=== PATIENT | male | born 1940 | race Caucasian/White ===

== ENCOUNTER 2019-08-10 14:32 | Outpatient (CLI) | payer MEDICARE, OTHER, SELFPAY ==
--- NOTE | 2019-08-10 14:45 | XR_ITS ---
WS: [id number] PROCEDURE: XR chest 2V* [id number] CLINICAL INFORMATION: COPD COMPARISON: CT November 25, 2018 and radiograph August 16, 2018 FINDINGS: Heart: Normal cardiac silhouette. Sternotomy. CABG. Lungs: Moderate chronic emphysematous changes. No acute pulmonary infiltrates. No focal pneumonia. Bones: Osteopenia. XR/XR chest 2V* [id number] IMPRESSION: Stable chronic emphysematous changes. No acute pulmonary infiltrates.
== END 2019-08-10 14:33 | disposition home or self-care (01) ==
LOC: RADWPI 14:39
PROVIDERS: Family Provider Family Medicine; PCP Family Medicine; Visit Provider Family Medicine
DX: J43.9 Emphysema, unspecified (principal)
CPT/HCPCS: 71046

== ENCOUNTER → 2020-06-06 13:08 | Outpatient (BNVA) | payer MEDICARE, OTHER, SELFPAY | PROVIDERS: Family Provider Family Medicine; PCP Family Medicine; Visit Provider Orthopaedic Surgery | DX: Z47.1 Aftercare following joint replacement surgery (principal); Z96.653 Presence of artificial knee joint, bilateral; M25.562 Pain in left knee; M25.561 Pain in right knee | CPT/HCPCS: 73560; 73565 ==

== ENCOUNTER 2021-03-06 06:40 | Outpatient (CLI) | payer MEDICARE, OTHER, SELFPAY ==
--- NOTE | 2021-03-06 07:15 | USCV_ITS ---
Hunter Garvin Age: 81 Gender: M : 1940 Exam Date: 03/06/2021 07:23 Ordering Phys: Heena Malin MD ([email or web address]) Technologist: JULITA DHALIWAL Exam Location: [facility] Indication: QUESTION OF OCCLUSIONOF CCA Risk Factors: Unknown Previous Vascular Surgery: Unknown Right Brachial BP: / Left Brachial BP: / Right Left Velocity (cm/s) Spectral Plaque Velocity (cm/s) Spectral Plaque Syst/Diast Broadening Syst/Diast Broadening 55.10/ 15.40 Prox CCA 67.70 / 17.10 33.50/ 9.20 Mid CCA 40.80 / 7.20 29.90/ 8.50 Hetro Distal CCA 41.40 / 5.90 Hetro 56.50/ 15.30 Hetro Prox ICA 54.00 / 15.60 Hetro 52.70/ 20.60 Mid ICA 74.20 / 18.30 44.00/ 14.00 Distal ICA 74.20 / 21.10 71.10 Hetro ECA 147.70 Hetro 1.69 ICA/CCA 1.82 Antegrade Vertebral Antegrade 25.00/ 9.20 cm/s 35.00/ 9.30 cm/s Tri Subclavian Tri 65.70 78.80 FINDINGS Moderate dense irregular plaques of the bifurcation proximal internal carotid arteries bilaterally. Intimal thickening and minimal plaques in the common carotid arteries bilaterally. Antegrade flow in the vertebral arteries bilaterally. Normal Doppler flow velocities in the subclavian arteries bilaterally. CONCLUSIONS Moderate dense irregular plaques of the bifurcation proximal internal carotid arteries bilaterally, suggesting less than 50% stenosis. Intimal thickening and minimal plaques in the common carotid arteries bilaterally. No significant stenosis in the subclavian or external carotid arteries bilaterally The common carotid arteries appear to be patent bilaterally. Dr Chase Suarez MD [facility] (Electronically Signed) Final Date: 07 March 2021 14:36 S
== END 2021-03-06 06:41 | disposition home or self-care (01) ==
LOC: US 06:44
PROVIDERS: PCP Family Medicine; Visit Provider Internal Medicine Cardiovascular Disease
DX: R09.89 Other specified symptoms and signs involving the circulatory and respiratory systems (principal); I65.23 Occlusion and stenosis of bilateral carotid arteries
CPT/HCPCS: 93880

== ENCOUNTER 2021-04-08 14:51 | Outpatient (CLI) | payer MEDICARE, OTHER, SELFPAY ==
--- NOTE | 2021-04-08 15:03 | XR_ITS ---
WS: [id number] Exam: XR shoulder RT min 2V* [id number] Date/Time of Exam: 04/08/2021 3:36 PM Reason For Exam: R SHOULDER PAIN No fracture or dislocation noted. Normal soft tissues. Calcified pleural plaque along the right diaph ragm noted. This might be seen with asbestos related lung disease. XR/XR shoulder RT min 2V* [id number] IMPRESSION: 1. Unremarkable right shoulder.
== END 2021-04-08 14:52 | disposition home or self-care (01) ==
LOC: RAD 14:57
PROVIDERS: PCP Family Medicine; Visit Provider Family Medicine
DX: M25.511 Pain in right shoulder (principal)
CPT/HCPCS: 73030

== ENCOUNTER 2021-04-18 14:50 | Outpatient (CLI) | payer MEDICARE, OTHER, SELFPAY ==
--- NOTE | 2021-04-18 15:20 | XR_ITS ---
WS: [id number] Chest 2 views, 04/18/2021 Clinical Data: PLEURAL PLAQUE Comparison: PA and lateral chest, 08/10/2019. Findings: No nodules, masses or effusions are seen. The heart is normal. The pulmonary vascularity is not increased. No pneumonia or pneumothorax is seen. The diaphragms are flattened. The aortic arch a nd descending thoracic aorta show tortuosity. There are midline sternotomy sutures with mediastinal c lips. There are small pleural plaques on the diaphragmatic surfaces of the pleura. XR/XR chest 2V* [id number] Impression: 1. Atherosclerosis and hyperinflation. 2. Pleural plaques on the diaphragmatic surfaces of the pleura.
== END 2021-04-18 14:51 | disposition home or self-care (01) ==
LOC: RAD 15:10
PROVIDERS: PCP Family Medicine; Visit Provider Family Medicine
DX: J92.9 Pleural plaque without asbestos (principal); I70.90 Unspecified atherosclerosis
CPT/HCPCS: 71046

== ENCOUNTER → 2021-05-12 12:07 | Outpatient (BNVA) | payer MEDICARE, OTHER, SELFPAY | PROVIDERS: PCP Family Medicine; Visit Provider Family Medicine | DX: R05.9 Cough, unspecified (principal); J06.9 Acute upper respiratory infection, unspecified | CPT/HCPCS: 87400 ==

== ENCOUNTER → 2021-09-25 12:50 | Outpatient (BNVA) | payer MEDICARE, OTHER, SELFPAY | PROVIDERS: PCP Family Medicine; Referring Provider Family Medicine; Visit Provider Specialist | DX: G89.29 Other chronic pain (principal); Z96.653 Presence of artificial knee joint, bilateral; Z87.891 Personal history of nicotine dependence; M25.561 Pain in right knee; M25.562 Pain in left knee | CPT/HCPCS: 73560; 73565; 99213; 99215 ==

== ENCOUNTER → 2021-11-07 12:00 | Outpatient (BNVA) | payer MEDICARE, OTHER, SELFPAY | PROVIDERS: PCP Family Medicine; Visit Provider Family Medicine | DX: Z20.822 Contact with and (suspected) exposure to COVID-19 (principal) | CPT/HCPCS: 87426 ==

== ENCOUNTER → 2022-01-01 09:48 | Outpatient (BNVA) | payer MEDICARE, OTHER, SELFPAY | PROVIDERS: PCP Family Medicine; Visit Provider Family Medicine | DX: E11.9 Type 2 diabetes mellitus without complications (principal); I10 Essential (primary) hypertension; E53.8 Deficiency of other specified B group vitamins; J06.9 Acute upper respiratory infection, unspecified; G47.33 Obstructive sleep apnea (adult) (pediatric); Z99.89 Dependence on other enabling machines and devices; I25.10 Atherosclerotic heart disease of native coronary artery without angina pectoris; I48.91 Unspecified atrial fibrillation; Z79.01 Long term (current) use of anticoagulants; N18.9 Chronic kidney disease, unspecified; L98.9 Disorder of the skin and subcutaneous tissue, unspecified | CPT/HCPCS: 80053; 82607; 83036; 85025 ==

== ENCOUNTER → 2022-01-08 13:37 | Outpatient (BNVA) | payer MEDICARE, OTHER, SELFPAY | PROVIDERS: PCP Family Medicine; Visit Provider Internal Medicine Cardiovascular Disease | DX: I12.9 Hypertensive chronic kidney disease with stage 1 through stage 4 chronic kidney disease, or unspecified chronic kidney disease (principal); E11.22 Type 2 diabetes mellitus with diabetic chronic kidney disease; N18.9 Chronic kidney disease, unspecified; Z87.891 Personal history of nicotine dependence; Z79.84 Long term (current) use of oral hypoglycemic drugs; I25.10 Atherosclerotic heart disease of native coronary artery without angina pectoris; I48.0 Paroxysmal atrial fibrillation; Z95.1 Presence of aortocoronary bypass graft; Z79.01 Long term (current) use of anticoagulants | CPT/HCPCS: 99214 ==

== ENCOUNTER 2022-04-08 16:01 | Outpatient (CLI) | payer MEDICARE, OTHER, SELFPAY ==
--- NOTE | 2022-04-08 16:53 | XR_ITS ---
WS: [id number] Exam: XR chest 2V* [id number] Date/Time of Exam: 04/08/2022 4:53 PM Reason For Exam: Dyspnea, crackles in lungs Comparison 04/18/2021. The lungs are hyperinflated and clear. Heart size is normal. The mediastinum is normal in contour. Si gns of previous CABG surgery. There are bilateral calcified diaphragmatic pleural plaques. The possib ility of asbestos-related lung disease might be considered. Bony structures are unremarkable. XR/XR chest 2V* [id number] IMPRESSION: 1. Pulmonary hyperinflation which may indicate COPD. No acute process noted. 2. Calcified pleural plaques along both of both diaphragms. Asbestos related magdy ng disease might be a consideration.
== END 2022-04-08 16:02 | disposition home or self-care (01) ==
LOC: RAD 16:06
PROVIDERS: PCP Family Medicine; Visit Provider Family Medicine
DX: Z51.81 Encounter for therapeutic drug level monitoring (principal); R06.00 Dyspnea, unspecified; R05.9 Cough, unspecified; E11.9 Type 2 diabetes mellitus without complications
CPT/HCPCS: 71046; 80053; 83036; 83880; 85025; 86141

== ENCOUNTER 2022-04-15 20:00 | Outpatient (CLI) | payer MEDICARE, OTHER, SELFPAY | END 2022-04-15 20:01 | disposition home or self-care (01) | LOC: SLEEP 04-16 07:27 | PROVIDERS: PCP Family Medicine; Visit Provider Family Medicine | DX: Z99.89 Dependence on other enabling machines and devices (principal); G47.33 Obstructive sleep apnea (adult) (pediatric); G47.10 Hypersomnia, unspecified | CPT/HCPCS: 95811 ==

== ENCOUNTER → 2022-07-07 14:10 | Outpatient (BNVA) | payer MEDICARE, OTHER, SELFPAY | PROVIDERS: PCP Family Medicine; Visit Provider Family Medicine | DX: Z51.81 Encounter for therapeutic drug level monitoring (principal); D64.9 Anemia, unspecified; N18.9 Chronic kidney disease, unspecified; Z13.220 Encounter for screening for lipoid disorders; E55.9 Vitamin D deficiency, unspecified; I10 Essential (primary) hypertension; E11.9 Type 2 diabetes mellitus without complications | CPT/HCPCS: 80053; 80061; 82306; 83550; 85025 ==

== ENCOUNTER 2022-08-18 14:58 | Outpatient (CLI) | payer MEDICARE, OTHER, SELFPAY ==
--- NOTE | 2022-08-18 15:30 | XRR_ITS ---
PROCEDURE INFORMATION: Exam: XR Chest Exam date and time: 08/18/2022 3:31 PM Age: 82 years old Clinical indication: Shortness of breath TECHNIQUE: Imaging protocol: Radiologic exam of the chest. Views: 2 views. COMPARISON: CR XR chest 2V* [id number] 04/08/2022 4:55 PM FINDINGS: Lungs: Left lower lobe atelectasis versus infiltrate new compared to prior exam. Emphysematous changes suspected given some flattening of the diaphragms. Pleural spaces: Calcified pleural plaques overlying the diaphragms again suspected appear chronic. Heart/Mediastinum: Unremarkable. No cardiomegaly. Bones/joints: Sternotomy wires. XR/XR chest 2V* [id number] IMPRESSION: 1. Left lower lobe atelectasis versus infiltrate new compared to prior exam. 2. Sternotomy wires. 3. Emphysematous changes suspected given some flattening of the diaphragms. 4. Calcified pleural plaques overlying the diaphragms again suspected appear chronic.
== END 2022-08-18 14:59 | disposition home or self-care (01) ==
LOC: RAD 15:04
PROVIDERS: PCP Family Medicine; Visit Provider Clinical Nurse Specialist Adult Health
DX: R06.02 Shortness of breath (principal); R35.0 Frequency of micturition; Z20.822 Contact with and (suspected) exposure to COVID-19
CPT/HCPCS: 71046; 81000; 87426

== ENCOUNTER → 2022-10-07 13:45 | Outpatient (BNVA) | payer MEDICARE, OTHER, SELFPAY | PROVIDERS: PCP Family Medicine; Visit Provider Family Medicine | DX: Z51.81 Encounter for therapeutic drug level monitoring (principal); E11.9 Type 2 diabetes mellitus without complications; J18.9 Pneumonia, unspecified organism; R68.83 Chills (without fever); R53.83 Other fatigue; R06.02 Shortness of breath; I10 Essential (primary) hypertension; D64.9 Anemia, unspecified; L98.9 Disorder of the skin and subcutaneous tissue, unspecified | CPT/HCPCS: 80053; 83036; 83540; 85025 ==

== ENCOUNTER → 2022-11-19 14:27 | Outpatient (BNVA) | payer MEDICARE, OTHER, SELFPAY | PROVIDERS: PCP Family Medicine; Visit Provider Nurse Practitioner Family | DX: L81.4 Other melanin hyperpigmentation (principal); D22.5 Melanocytic nevi of trunk; Z71.89 Other specified counseling; L85.3 Xerosis cutis; L57.8 Other skin changes due to chronic exposure to nonionizing radiation; L57.0 Actinic keratosis; C44.329 Squamous cell carcinoma of skin of other parts of face; S50.812A Abrasion of left forearm, initial encounter; X58.XXXA Exposure to other specified factors, initial encounter; Z85.828 Personal history of other malignant neoplasm of skin; Z87.891 Personal history of nicotine dependence | CPT/HCPCS: 11102; 17004; 99213 ==

== ENCOUNTER → 2022-12-11 07:54 | Outpatient (BNVA) | payer MEDICARE, OTHER, SELFPAY | PROVIDERS: PCP Family Medicine; Visit Provider Dermatology | DX: C44.329 Squamous cell carcinoma of skin of other parts of face (principal) | CPT/HCPCS: 12052; 17311; 17312 ==

== ENCOUNTER → 2022-12-23 14:53 | Outpatient (BNVA) | payer MEDICARE, OTHER, SELFPAY | PROVIDERS: PCP Family Medicine; Visit Provider Dermatology | DX: Z48.02 Encounter for removal of sutures (principal) | CPT/HCPCS: 99024; 99212 ==

== ENCOUNTER 2023-01-03 08:27 | Inpatient (IN) | payer MEDICARE, OTHER, SELFPAY ==
[2023-01-03] VITALS (21 sets, daily range): BP systolic 84–169; BP diastolic 62–81; PULSE 80–119; RESP 15–36; TEMP 36.7–36.9; O2SAT 86–99
--- NOTE | 2023-01-03 08:35 | W.ED.SOB ---
HPI - SOB/Dyspnea General: Chief Complaint: Shortness of Breath/Dyspnea Stated Complaint: Pain in left side SOB Time Seen by Provider: 01/03/23 08:35 History of Present Illness: HPI Narrative: Mr. Garvin is an 82-year-old gentleman with history of diabetes, hypertension, hyperlipidemia, CKD, atrial fibrillation on anticoagulation, former history of smoking presented the emergency department for evaluation of shortness of breath. He notes left-sided pain starting last night without known specific factor. Lower chest and upper abdomen. Sharp and stabbing worse with palpation and movement. He also has noticed a few day history of green sputum with productive cough. Tachycardia was noted this morning as well as generalized malaise. Course has worsened. Moderate to severe in intensity. No other specific changes in health, exacerbating, or alleviating factors identified. Onset (ago): day(s) Timing: progressively worsening Exacerbating factors: movement and other Associated symptoms: Reports cough, nausea and other Review of Systems General: Reports: 10 or more systems reviewed and unremarkable except in HPI and below GI: Reports: nausea PFSH ED PFSH: Medical History Abdominal mass Adrenal mass Anticoagulant long-term use ASHD (arteriosclerotic heart disease) Atrial fibrillation Chest pain Chills CKD (chronic kidney disease) Diabetes Dyslipidemia Fatigue History of nonmelanoma skin cancer HTN (hypertension) MYLA on CPAP Paroxysmal atrial fibrillation with RVR Pneumonia Shortness of breath Surgical History S/P CABG (coronary artery bypass graft) S/P knee replacement Social History Smoking and tobacco status: former smoker Household members: spouse Marital status: service: No Current occupational status: retired Physical Exam Const: COMMON NORMALS: alert GENERAL APPEARANCE: cooperative and well developed HENMT: COMMON NORMALS: normocephalic and atraumatic HEAD & SCALP: normocephalic and atraumatic Eye: COMMON NORMALS: conjunctivae normal CONJUNCTIVA: Yes conjunctivae normal SCLERA: sclerae normal Neck/C-Spine: COMMON NORMALS: supple GENERAL: Yes trachea midline Resp: EFFORT & INSPECTION: Yes tachypneic AUSCULTATION: diminished lung sounds Cardio: COMMON NORMALS: regular rhythm RATE: tachycardic RHYTHM: regular rhythm GI: COMMON NORMALS: Soft to palpation PALPATION: Yes Soft to palpation and No Tenderness to palpation present (GI) Extremity: GENERAL: Yes normal exam except as noted and No edema Neuro: COMMON NORMALS: moves all extremities SENSORIUM/ORIENTATION: Yes alert and No Orientation impaired Psych: COMMON NORMALS: mental status grossly normal and Normal thought process present THOUGHT PROCESS: Normal thought process present Course Vital Signs: Vital signs: Vital Signs Temperature 97.5 F L 01/05/23 19:17 Pulse Rate 93 01/05/23 19:17 Respiratory Rate 16 01/05/23 19:17 Blood Pressure 126/72 01/05/23 19:17 Pulse Oximetry 97 01/05/23 19:17 Oxygen Delivery Me thod Nasal Cannula 01/05/23 15:08 Oxygen Flow Rate 2 01/05/23 13:57 MDM - SOB/Dyspnea Medical Decision Making 82-year-old gentleman presenting with left-sided upper abdominal and left lower chest pain associate with shortness of breath and particular history. Mildly ill-appearing but nontoxic. He is requiring supplemental oxygen. EKG demonstrates atrial fibrillation with rapid ventricular response, no STEMI, there is right bundle branch block. Labs with leukocytosis, normal hemoglobin and platelet count. Metabolic panel with hypokalemia and mildly elevated creatinine, overall metabolic stress is present. Negative range 2-hour delta troponin. BNP is elevated. Viral panel negative. Chest x-ray demonstrates pneumonia. Patient treated with analgesia, IV fluids, antibiotics for community-acquired pneumonia, potassium supplementation also given. Patient requires hospitalization for pneumonia with atrial fibrillation and rapid ventricular response The results of ED evaluation were discussed with the patient including plan for admission due to requirement for level of care not available if discharged to prevent significant worsening/deterioration. Patient agreeable with plan. Discussed with hospitalist service who was agreeable to admit patient. Medical Records I reviewed the patient's medical records. Lab Data I reviewed the patient's lab results. 01/05/23 05:16 01/05/23 05:16 Labs/Radiology: Radiology Impressions Chest X-Ray 01/03/23 08:49 IMPRESSION: Left lower lobe pneumonia and small parapneumonic effusion. Recommend imaging followup to resolution to exclude an underlying lesion. THIS REPORT CONTAINS FINDINGS THAT MAY BE CRITICAL TO PATIENT CARE. The findings were verbally communicated via telephone conference with Jadiel Hernandez at 9:44 AM CDT on 01/03/2023. The findings were acknowledged and understood. Abdomen/Pelvis CT 01/03/23 13:18 IMPRESSION: 1. No acute findings. 2. 5.4 cm long left para-aortic mass may represent necrotic lymph node. Suggested feeding and draining vessels. Recommend contrast-enhanced CT and testicular exam with consideration for ultrasound as indicated. 3. Known left lower lobe pneumonia. Recommend imaging followup to resolution to exclude an underlying lesion. 4. 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 Given large size, consider surgical evaluation if not previously performed, which may be on a nonemergent basis. 5. Atherosclerosis. 6. Prostatomegaly. Abdomen MRI 01/05/23 11:46 IMPRESSION: 1. Unchanged left-sided para-aortic necrotic appearing mass again suspicious for adenopathy. Consider PET scan for follow-up. 2. Unchanged left adrenal gland mass consistent with a myelolipoma. 3. Persistent left lower lobe consolidation. COMMENTS: Consistent with the [employer]'s Incidental Findings Committee white paper (J Am Joseph Radiol 2018): Any incidental renal lesion less than 1 cm or classified as too small to characterize, or any incidental cystic renal lesion characterized as simple-appearing, is likely benign. No follow-up imaging is recommended for these lesions per consensus recommendations based on imaging criteria. Pelvis MRI 01/05/23 11:46 IMPRESSION: 1. The inferior extent of the known periaortic mass is partially imaged. No other adenopathy. 2. Prostatomegaly with thickened bladder. This may be related to chronic outlet obstruction. Correlate for cystitis. Abdomen Ultrasound 01/05/23 18:11 IMPRESSION: Reidentified is the LEFT periaortic mass seen by CT. Very nonspecific and may be a cluster of lymph nodes. Laboratory Results WBC 14.9 10^3/uL (4.0-10.0) H 01/03/23 09:28 RBC 4.73 10^6/uL (4.1-5.3) 01/03/23 09:28 Hgb 12.9 g/dL (11.7-16.6) 01/03/23 09:28 Hct 39.1 % (42.0-52.0) L 01/03/23 09:28 MCV 82.7 fl (80-94) 01/03/23 09:28 MCH 27.3 pg (28.0-34.0) L 01/03/23 09:28 MCHC 33.0 g/dL (30.0-36.0) 01/03/23 09: RDW 13.1 % (12.1-15.1) 01/03/23 09:28 Plt Count 208 10^3/cmm (130-400) 01/03/23 09:28 MPV 10.7 fL (7.4-10.4) H 01/03/23 09:28 Neut % (Auto) 79.4 % 01/03/23 09:28 Lymph % (Auto) 6.4 % 01/03/23 09:28 [place] % (Auto) 13.6 % 01/03/23 09:28 Eos % (Auto) 0.1 % 01/03/23 09: Baso % (Auto) 0.2 % 01/03/23 09:28 Neut # (Auto) 11.85 10^3/uL (1.8-7.7) H 01/03/23 09:28 Lymph # (Auto) 1.0 10^3/uL (0.8-4.8) 01/03/23 09:28 [place] # (Auto) 2.0 10^3/uL (0.2-0.9) H 01/03/23 09:28 Eos # (Auto) 0.0 10^3/uL (0.0-0.8) 01/03/23 09:28 Baso # (Auto) 0.0 10^3/uL (0.0-0.1) 01/03/23 09: Nucleated RBC % (auto) 0 % 01/03/23 09:28 Nucleated RBCs # 0.0 /100WBC 01/03/23 09:28 Sodium 136 mmol/L (136-145) 01/03/23 09:28 Potassium 3.1 mmol/L (3.5-5.1) L 01/03/23 09:28 Chloride 96 mmol/L (98-107) L 01/03/23 09:28 Carbon Dioxide 23 mmol/L (22-29) 01/03/23 09:28 Anion Gap 20.1 (5-19) H 01/03/23 09:28 BUN 24 mg/dL (8-23) H 01/03/23 09:28 Creatinine 1.4 mg/dL (0.7-1.2) H 01/03/23 09:28 GFR Calculation Not Reportable 01/03/23 09:28 Glucose 211 mg/dL (65-115) H 01/03/23 09:28 Calculated Osmolality 292 mOsm/kg (285-295) 01/03/23 09:28 Lactic Acid 1.2 mmol/L (0.5-2.2) 01/03/23 09:28 Calcium 8.5 mg/dL (8.5-10.5) 01/03/23 09:28 Total Bilirubin 0.9 mg/dL (0.15-1.2) 01/03/23 09:28 AST 13 U/L (0-40) 01/03/23 09:28 ALT 10 U/L (0-41) 01/03/23 09:28 Alkaline Phosphatase 101 U/L (40-130) 01/03/23 09:28 Troponin T Baseline 10 ng/L (0-15) 01/03/23 09:28 NT-Pro-B Natriuret Pep 3477 pg/mL (0-450) H 01/03/23 09:28 Total Protein 6.2 g/dL (6.6-8.7) L 01/03/23 09:28 Albumin 3.8 g/dL (3.5-5.2) 01/03/23 09:28 Globulin 2.4 g/dL (1.3-4.6) 01/03/23 09:28 Lipase 29 U/L (13-60) 01/03/23 09:28 Nasal Influ A H1 2008 PCR Not detected (NOT DETECT) 01/03/23 09:08 Adenovirus (PCR) Not detected (NOT DETECT) 01/03/23 09:08 C. pneumoniae DNA (PCR) Not detected (NOT DETECT) 01/03/23 09:08 Coronavirus 229E (PCR) Not detected (NOT DETECT) 01/03/23 09:08 Human Metapneumovir PCR Not detected (NOT DETECT) 01/03/23 09:08 Influenza A (H1) PCR Not detected (NOT DETECT) 01/03/23 09:08 Influenza A (H3) PCR Not detected (NOT DETECT) 01/03/23 09:08 Influenza Type A (PCR) Not detected (NOT DETECT) 01/03/23 09:08 Influenza Type B (PCR) Not detected (NOT DETECT) 01/03/23 09:08 M. pneumoniae (PCR) Not detected (NOT DETECT) 01/03/23 09:08 Parainfluenza 1 (PCR) Not detected (NOT DETECT) 01/03/23 09:08 Parainfluenza 2 (PCR) Not detected (NOT DETECT) 01/03/23 09:08 Parainfluenza 3 (PCR) Not detected (NOT DETECT) 01/03/23 09:08 Parainfluenza 4 (PCR) Not detected (NOT DETECT) 01/03/23 09:08 RSV Type A (PCR) Not detected (NOT DETECT) 01/03/23 09:08 RSV Type B (PCR) Not detected (NOT DETECT) 01/03/23 09:08 Entero/Rhino (PCR) Not detected (NOT DETECT) 01/03/23 09:08 SARS-CoV-2 (PCR) Not detected (NOT DETECT) 01/03/23 09:08 Discharge Plan Discharge Patient Disposition: Placed in Observation Admit Provider: Khari Gay Clinical Impression: Pneumonia, Atrial fibrillation Discharge Diet: Cardiac Discharge Activity: Increase activity as tolerated Coding Level of Care Code ED Pharmacoepidemiologist for Jamel Valle
--- NOTE | 2023-01-03 08:49 | XRR_ITS ---
PROCEDURE INFORMATION: Exam: XR Chest Exam date and time: 01/03/2023 9:18 AM Age: 82 years old Clinical indication: Pain; Cough; Left-sided; Prior surgery; Surgery date: 6+ months; Surgery type: Cabg; Additional info: L sided chest pain, cough TECHNIQUE: Imaging protocol: Radiologic exam of the chest. Views: 1 view. COMPARISON: 1. CR XR chest 2V* [id number] 08/18/2022 3:31 PM 2. CR XR chest 2V* [id number] 04/08/2022 4:55 PM 3. CR XR chest 2V* [id number] 04/18/2021 3:24 PM FINDINGS: Lungs: Left lower lobe consolidation with indistinctness of the left hemidiaphragm. Mild right basilar linear scarring and/or atelectasis. Pleural spaces: Blunting of the left costophrenic sulcus. No pneumothorax. Right diaphragmatic calcified pleural plaque. Heart/Mediastinum: Multiple mediastinal clips. No cardiomegaly. Bones/joints: Stable median sternotomy wires. XR/XR chest 1V portable [id number] IMPRESSION: Left lower lobe pneumonia and small parapneumonic effusion. Recommend imaging followup to resolution to exclude an underlying lesion. THIS REPORT CONTAINS FINDINGS THAT MAY BE CRITICAL TO PATIENT CARE. The findings were verbally communicated via telephone conference with Jadiel Hernandez at 9:44 AM CDT on 01/03/2023. The findings were acknowledged and understood.
--- NOTE | 2023-01-03 08:56 | ECG_ITS ---
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 Measurements Intervals [place] Rate: 116 P: 0 NC: 0 QRS: 83 QRSD: 136 T: 33 QT: 349 QTc: 486 Interpretive Statements ATRIAL FIBRILLATION WITH RAPID VENTRICULAR RESPONSE RIGHT BUNDLE BRANCH BLOCK [120+ ms QRS DURATION, UPRIGHT V1, 40+ ms S IN I/aVL/V4/V5/V6] Compared to ECG 02/05/2018 09:43:01 Sinus rhythm no longer present First degree AV block no longer present Electronically Signed On 01-03-2023 11:41:17 CDT by Heena Malin M.D. [email or web address]leman[facility].[employer]/store/[id number]
[2023-01-03] MEDS: sodium chloride 0.9% 1,000 ML 999 ML IV (09:28)
[2023-01-03 09:36] LABS: Basophils % 0.2 %; Eosinophils % 0.1 %; Hematocrit 39.1 % (42.0-52.0); Hemoglobin 12.9 g/dL (11.7-16.6); Lymphocytes % 6.4 %; Mean Corpuscular Hemoglobin 27.3 pg (28.0-34.0); Mean Corpuscular Volume 82.7 fl (80-94); Mean Platelet Volume 10.7 fL (7.4-10.4); Monocytes % 13.6 %; Neutrophils # 11.85 10^3/uL (1.8-7.7); Neutrophils % 79.4 %; Nucleated Red Blood Cells % 0 %; Platelet Count 208 10^3/cmm (130-400); Red Blood Count 4.73 10^6/uL (4.1-5.3); Red Cell Distribution Width 13.1 % (12.1-15.1); White Blood Count 14.9 10^3/uL (4.0-10.0)
[2023-01-03] MEDS: cefTRIAXone 1,000 MG in sodium chloride 0.9% (plus) 50 ML 100 MG IV (09:57)
[2023-01-03 10:10] LABS: Lactic Sepsis W/Reflex 1.2 mmol/L (0.5-2.2)
[2023-01-03 10:19] LABS: Alanine Aminotransferase 10 U/L (0-41); Albumin Level 3.8 g/dL (3.5-5.2); Alkaline Phosphatase 101 U/L (40-130); Anion Gap 20.1 (5-19); Aspartate Amino Transferase 13 U/L (0-40); Blood Urea Nitrogen 24 mg/dL (8-23); Calcium 8.5 mg/dL (8.5-10.5); Carbon Dioxide 23 mmol/L (22-29); Chloride 96 mmol/L (98-107); Globulin 2.4 g/dL (1.3-4.6); Glucose 211 mg/dL (65-115); Lipase 29 U/L (13-60); NT Pro B Type Natriuretic Pept 3477 pg/mL (0-450); Osmolality Calculated 292 mOsm/kg (285-295); Potassium 3.1 mmol/L (3.5-5.1); Sodium 136 mmol/L (136-145); Total Bilirubin 0.9 mg/dL (0.15-1.2); Total Protein 6.2 g/dL (6.6-8.7)
[2023-01-03 10:25] LABS: Troponin(5th) Baseline 10 ng/L (0-15)
[2023-01-03] MEDS: potassium chloride oral liq 20 mEq/15 mL UDC 40 MEQ PO (10:38)
[2023-01-03] MEDS: doxycycline 100 MG in sodium chloride 0.9% (plus) 100 ML IV ×2 (10:38→20:27)
--- NOTE | 2023-01-03 10:44 | ECG_ITS ---
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 Measurements Intervals [place] Rate: 94 P: 0 OR: 0 QRS: 75 QRSD: 140 T: 14 QT: 380 QTc: 476 Interpretive Statements ATRIAL FIBRILLATION RIGHT BUNDLE BRANCH BLOCK [120+ ms QRS DURATION, UPRIGHT V1, 40+ ms S IN I/aVL/V4/V5/V6] Compared to ECG 01/03/2023 08:56:04 No significant changes Electronically Signed On 01-04-2023 11:28:19 CDT by Heena Malin M.D. [email or web address]/[id number]
[2023-01-03 12:20] LABS: Adenovirus Not Detected (NOT DETECT); Chlamydia Pneumoniae Not Detected (NOT DETECT); Coronavirus 229E,HKU1,NL63,OC4 Not Detected (NOT DETECT); Human Metapneumovirus Not Detected (NOT DETECT); Human Rhinovirus/Enterovirus Not Detected (NOT DETECT); Influenza A Not Detected (NOT DETECT); Influenza A H1 Not Detected (NOT DETECT); Influenza A H1-2009 Not Detected (NOT DETECT); Influenza A H3 Not Detected (NOT DETECT); Influenza B Not Detected (NOT DETECT); Mycoplasma Pneumoniae Not Detected (NOT DETECT); Parainfluenza Virus Type 1 Not Detected (NOT DETECT); Parainfluenza Virus Type 2 Not Detected (NOT DETECT); Parainfluenza Virus Type 3 Not Detected (NOT DETECT); Parainfluenza Virus Type 4 Not Detected (NOT DETECT); Respiratory Syncytial Virus A Not Detected (NOT DETECT); Respiratory Syncytial Virus B Not Detected (NOT DETECT); SARS-COV-2 Not Detected (NOT DETECT)
--- NOTE | 2023-01-03 13:18 | CTR_ITS ---
PROCEDURE INFORMATION: Exam: CT Abdomen And Pelvis Without Contrast Exam date and time: 01/03/2023 2:17 PM Age: 82 years old Clinical indication: Abdominal pain; Additional info: L side tenderness, poor appetite, HX diverticulitis, assess for any recurrence TECHNIQUE: Imaging protocol: Computed tomography of the abdomen and pelvis without contrast. Radiation optimization: All CT scans at this facility use at least one of these dose optimization techniques: automated exposure control; mA and/or kV adjustment per patient size (includes targeted exams where dose is matched to clinical indication); or iterative reconstruction. REPORTING DATA: Count of CT and Cardiac NM exams in prior 12 months: This patient has received 0 known CTs and 0 known cardiac nuclear medicine studies in the 12 months prior to the current study. COMPARISON: 1. CR (CHEST, ) 01/03/2023 9:[address] chest wo con [id number] 11/25/2018 10:43 AM RADIATION DOSE METRICS: Total DLP (mGy-cm): 626.69 FINDINGS: Lungs: Left lower lobe consolidation. Calcified right diaphragmatic pleural plaque. Right lower lung calcified granulomata. Pleural spaces: No pleural effusion. Coronary arteries: Coronary artery calcification. Diaphragm: Small hiatal hernia. Liver: Tiny hepatic calcifications in keeping with sequela of old granulomatous disease. Gallbladder and bile ducts: Normal. No calcified stones. No ductal dilation. Pancreas: Diffuse fatty infiltration of the pancreas. Spleen: Tiny splenic calcification in keeping with sequela of old granulomatous disease. Adrenal glands: Stable macroscopic fat containing 4.6 x 3.8 x 4.6 cm left adrenal myelolipoma. Normal right adrenal gland. Kidneys and ureters: Symmetric perirenal fat stranding is likely age related. Otherwise unremarkable. Stomach and bowel: No bowel dilatation or evidence of mucosal thickening. Distal colonic diverticulosis without findings of diverticulitis. Appendix: No evidence of appendicitis. Intraperitoneal space: No free air, free fluid, or well-organized fluid collection. Vasculature: Heavy aortoiliac atherosclerotic calcification without abdominal aortic aneurysm. Lymph nodes: There is a 2.5 x 2.2 x 5.4 cm left para-aortic mass with mild central hypoattenuation and small calcification. Suggested small feeding and draining vessels. Otherwise no enlarged lymph nodes. Urinary bladder: Urinary bladder is unremarkable. Reproductive: Enlarged prostate gland measures 5.7 cm in transverse dimension and shows central calcifications. Bones/joints: Median sternotomy wires. No acute fracture. L1 vertebral body intraosseous hemangioma. Mild degenerative changes along the spine. Soft tissues: Unremarkable. CT/CT abdomen pelvis wo con [id number] IMPRESSION: 1. No acute findings. 2. 5.4 cm long left para-aortic mass may represent necrotic lymph node. Suggested feeding and draining vessels. Recommend contrast-enhanced CT and testicular exam with consideration for ultrasound as indicated. 3. Known left lower lobe pneumonia. Recommend imaging followup to resolution to exclude an underlying lesion. 4. 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 Given large size, consider surgical evaluation if not previously performed, which may be on a nonemergent basis. 5. Atherosclerosis. 6. Prostatomegaly.
--- NOTE | 2023-01-03 13:20 | P.HP_ITS ---
Providers/Chief Complaint Primary Care Provider: Shar Che MD Chief Complaint: Pain in left side SOB History of Present Illness Pleasant 82-year-old gentleman with history of CAD, status post CABG x2, former smoker, there was perhaps some suspicion in the past about COPD but has not been formally tested, not normally on oxygen, does have MYLA on nightly CPAP, also with atrial fibrillation, on anticoagulation with Eliquis, HTN, HLD, diabetes, CKD his additional comorbidities. Presented to ER due to several days of dyspnea, productive cough, pleuritic left-sided chest pain, worse with movement. In ER he is noted tachycardic, heart rates 100 teens, WBC 14.9. Afebrile but is having chills. No nausea vomiting or diarrhea, however, appetite has not been the best. Some tenderness in the left side abdomen. He denies any persistent chest pain. NT-proBNP is noted abnormal at 3477. Baseline troponin is 10. EKG with atrial fibrillation, RBBB. Viral panel is obtained and pending. Chest x-ray with LLL PNA and small parapneumonic effusion. Recommended imaging follow-up to resolution to exclude an underlying lesion. Review of Systems Const: Denies: fever(s), chills, body aches or malaise ENMT: Denies: throat pain Card: Reports: chest pain; Denies: edema, pre-syncope or dyspnea on exertion Resp: Reports: dyspnea, productive cough and pain on inspiration; Denies: hemoptysis GI: Denies: abdominal pain, nausea, vomiting, diarrhea, constipation, hematochezia or melena : Denies: flank pain, difficulty urinating, urinary frequency or hematuria Musc: Denies: back pain, joint swelling or joint redness Skin/Breast: Denies: rash or new lesions Medications/Allergies Home Medications Medication Instructions Recorded Confirmed Last Taken Type ascorbate calcium (vitamin C) 500 500 mg PO BID 08/02/19 01/03/23 01/02/23 History mg tablet ergocalciferol (vitamin D2) 10 mcg 400 unit PO DAILY 08/02/19 01/03/23 01/02/23 History (400 unit) tablet montelukast 10 mg tablet 10 mg PO DAILY 08/02/19 01/03/23 01/02/23 History cholecalciferol (vitamin D3) 10 10 mcg PO DAILY 06/06/20 01/03/23 01/02/23 History mcg (400 unit) capsule calcium carbonate 600 mg calcium 600 mg PO DAILY 06/26/21 01/03/23 01/02/23 History (1,500 mg) tablet (Calcium) nitroglycerin 0.4 mg sublingual 0.4 mg sublingual Q5M PRN Chest 06/26/21 01/03/23 Unknown History tablet Pain vitamin E (dl, acetate) 180 mg 180 mg PO DAILY 06/26/21 01/03/23 01/02/23 History (400 unit) capsule cetirizine 10 mg tablet 10 mg PO DAILY PRN Allergy Symptoms 01/08/22 01/03/23 01/02/23 History furosemide 20 mg tablet 20 mg PO DAILY #30 tabs 04/12/22 01/03/23 Unknown Rx cyanocobalamin (vitamin B-12) See Rx Instructions .Route 04/18/22 01/03/23 01/02/23 Rx 1,000 mcg tablet .COMPLEX #90 tabs Diabetic shoes #1 ea 04/23/22 01/03/23 Unknown Rx cpap machine and supplies #1 ea 05/20/22 01/03/23 Unknown Rx sitagliptin phosphate 100 mg 100 mg PO DAILY #90 tabs 05/30/22 01/03/23 01/02/23 Rx tablet (Januvia) fluticasone propionate 50 2 spray intranasal DAILY #16 grams 06/19/22 01/03/23 Unknown Rx mcg/actuation nasal spray,suspension potassium chloride 10 mEq 10 meq PO DAILY PRN On days that 07/07/22 01/03/23 Unknown Rx tablet,extended release (Klor-Con) you take Furosemide #30 tabs ferrous sulfate 325 mg (65 mg 325 mg PO BID #60 tabs 07/15/22 01/03/23 01/02/23 Rx iron) tablet glimepiride 4 mg tablet 4 mg PO DAILY #90 tabs 07/16/22 01/03/23 01/02/23 Rx apixaban 2.5 mg tablet (Eliquis) 2.5 mg PO BID 90 days #180 tabs 08/07/22 01/03/23 01/02/23 Rx benzonatate 100 mg capsule 100 mg PO TID PRN cough #45 caps 08/19/22 01/03/23 01/02/23 Rx metformin 500 mg tablet 500 mg PO BID #180 tabs 08/21/22 01/03/23 01/02/23 Rx hydrochlorothiazide 25 mg tablet 25 mg PO DAILY 01/03/23 01/03/23 01/02/23 History metoprolol succinate 100 mg 100 mg PO BID 01/03/23 01/03/23 01/02/23 History tablet,extended release 24 hr pantoprazole 40 mg tablet,delayed 40 mg PO DAILY 01/03/23 01/03/23 01/02/23 History release pravastatin 20 mg tablet 20 mg PO QPM 01/03/23 01/03/23 01/02/23 History tamsulosin 0.4 mg capsule 0.4 mg PO QPM 01/03/23 01/03/23 01/02/23 History verapamil 80 mg tablet 40 mg PO BID 01/03/23 01/03/23 01/02/23 History vit C 250 mg-vit E 90 mg-zinc 40 1 tab PO BID 01/03/23 01/03/23 01/02/23 History mg-copper 1 [id number] capsule (PreserVision AREDS-2) Allergies Allergy/AdvReac Type Severity Reaction Status Date / Time loratadine [From Claritin] AdvReac Mild LO...Legs Verified 01/03/23 10:12 rajinder patel PFSH Acute PFSH: Medical History Anticoagulant long-term use ASHD (arteriosclerotic heart disease) Atrial fibrillation CKD (chronic kidney disease) Diabetes Dyslipidemia History of nonmelanoma skin cancer HTN (hypertension) MYLA on CPAP Surgical History S/P CABG (coronary artery bypass graft) S/P knee replacement Social History Smoking and tobacco status: former smoker Household members: spouse Marital status: service: No Current occupational status: retired Vitals/I&O/Wt Last Vital Signs Temp 98.1 F 01/03/23 08:35 Pulse 119 H 01/03/23 13:00 Resp 18 01/03/23 12:45 BP 117/72 01/03/23 12:00 Pulse Ox 91 01/03/23 13:00 O2 Del Method Room Air 01/03/23 08:35 01/02/23 01/03/23 01/03/23 22:59 06:59 14:59 Intake Total 1050 / 1050 Balance 1050 / 1050 Weight last 48 hrs Weight 83.915 kg Physical Exam Narrative: Accompanied by his family. Const: COMMON NORMALS: patient oriented x3 and alert GENERAL APPEARANCE: cooperative ORIENTATION/CONSCIOUSNESS: Yes awake HENMT: COMMON NORMALS: oropharynx normal Neck/C-Spine: COMMON NORMALS: no JVD Resp: AUSCULTATION: diminished lung sounds (Minimally diminished) OTHER: Getting dyspneic while eating. Cardio: COMMON NORMALS: no JVD, regular rhythm, S1 normal heart sound present, S2 normal heart sound present and No murmurs present (Cardio) RHYTHM: regular rhythm HEART SOUNDS: S1 normal heart sound present and S2 normal heart sound present GI: COMMON NORMALS: Normal to inspection, nondistended, normoactive bowel sounds present, Soft to palpation and non-tender PALPATION: Yes Soft to palpation Extremity: COMMON NORMALS: no joint enlargement and no pedal edema Neuro: COMMON NORMALS: patient oriented x3 and moves all extremities SENSO RIUM/ORIENTATION: Yes alert Skin: COMMON NORMALS: no rashes or lesions noted GENERAL SKIN EXAM: no rashes or lesions noted Data 01/03/23 09:28 01/03/23 09:28 Micro: Microbiology 01/03/23 11:52 Blood Culture - Preliminary Blood SPECIMEN COLLECTED 01/03/23 11:52 Blood Culture - Preliminary Blood SPECIMEN COLLECTED A&P Assessment and plan (1) Pneumonia: With noted left lower lobe pneumonia. Oxygen saturation borderline 92%. He does get very easily dyspneic, noticeable even with eating, longer sentences. Productive cough. Pleuritic chest discomfort in the left side. Normally on Eliquis, discussed with him consideration of PE, no other symptoms of DVT or PE, lower risk. Treat pneumonia, ceftriaxone, azithromycin. Collect sputum culture, urine bacterial antigens, MRSA PCR. So far has not required oxygen, monitor oxygenation. Moderate risk group curb 65 and PSI recommended hospitalization. Additionally underlying CAD, CKD, other comorbidities, at risk of complications. Discussed with him and his family. Noted leukocytosis, sinus tachycardia, possible sepsis not excluded, blood culture collected, follow-up. Lactate is normal. No signs of endorgan injury at this time. With elevated NT proBNP, no prior echo. Assess TTE. Could also be related to pneumonia. (2) Chest pain: Atypical chest pain pleuritic. Likely related to pneumonia. On Eliquis, lower likelihood of PE. Low risk group Wells score. Complete troponin EKG series with history of CAD to assess for possible AMI. Currently no STEMI on EKG, no obvious ischemic changes on my interpretation. Noted atrial fibrillation. No suggestion of NSTEMI at this time. Pain-free at the moment. Continue Eliquis, beta-erica, statin. Noted elevation of NT proBNP. Lipase noted normal. (3) Shortness of breath: As above. Additionally NT-proBNP is higher than usual. He does not appear fluid overloaded, no obvious JVD, no peripheral edema. Denies orthopnea, PND. Monitor volume status. Continue Lasix 20 mg daily. (4) Chills: Related to pneumonia as above. (5) Fatigue: Clear related to. Respiratory viral panel pending. Check TSH Qualifiers: Fatigue type: unspecified Qualified Code(s): R53.83 - Other fatigue (6) Paroxysmal atrial fibrillation with RVR: Likely secondary to respiratory illness, pneumonia, possible sepsis. Continue verapamil. Eliquis. Monitor on telemetry. Replace hypokalemia. Check magnesium. Treat pneumonia. Currently with RVR, heart rates 100 teens. Some intermittent chest pain, unclear if related to the tachycardia, but sounds more pleuritic. At risk of deterioration and significant disabling or life-threatening event with underlying CAD, status post CABG. Worsening tachycardia. Hemodynamic instability. Monitor on telemetry. Plan DM2: SSI. CC diet. Accu-Cheks. Hold oral hypoglycemics for now. A-fib: Currently A-fib with mild RVR, heart rates 100 teens. Continue verapamil. He just got his morning medications recently. CKD: Monitor renal function. Avoid nephrotoxins. HTN: Monitor blood pressures. Continue metoprolol, HCTZ. BPH: Continue Flomax HLD: Continue statin Possible undiagnosed COPD: Suggested previously clinically, has not had any pulmonary function testing. Follow-up with PCP would benefit from assessment after recovers from acute condition. CAD, Hx CABG, history provided by his , continue statin, beta-erica, monitor on telemetry. Complete troponin EKG series ER documentation reviewed. Discussed with ER physician. Attestations Medical Necessity Statement*: Admission of over 2 midnights anticipated for assessment management of pneum onia, possible sepsis with moderate risk in a gentleman with underlying multiple complaints including CAD, status post CABG, CKD, multiple additional comorbidities as above. Diagnoses Pneumonia J18.9 Chest pain R07.9 Shortness of breath R06.02 Chills R68.83 Fatigue R53.83 Fatigue type: unspecified Paroxysmal atrial fibrillation with RVR I48.0
--- NOTE | 2023-01-03 14:20 | USCV_ITS ---
Hunter Garvin Age: 82 Gender: M : 1940 Exam Date: 01/03/2023 14:32 Ordering Phys: Khari Gay MD Technologist: Nick Severino [place] [facility] [place]: chest pain BP: 141 / 62 HR: 109 Rhythm: Sinus Technical Quality: Adequate MEASUREMENTS (Male / Female) Normal Values 2D ECHO LV Diastolic Diameter PLAX 4.2 cm 4.2 - 5.9 / 3.9 - 5.3 cm LV Systolic Diameter PLAX 3.2 cm IVS Diastolic Thickness 1.2 cm 0.6 - 1.0 / 0.6 - 0.9 cm IVS Systolic Thickness 1.4 cm LVPW Diastolic Thickness 1.2 cm 0.6 - 1.0 / 0.6 - 0.9 cm LVPW Systolic Thickness 1.7 cm LVOT Diameter 2.0 cm LV Ejection Fraction 2D Teich 46.7 % LV Ejection Fraction MOD 2C 72.1 % LV Ejection Fraction 2C AL 73.1 % LA Diameter 4.5 cm IVC Diameter 1.7 cm M-MODE Aortic Annulus Diameter 3.9 cm LA Ao Ratio MM 1.1 MV E Point Septal Separation 0.7 cm DOPPLER LVOT Peak Velocity 118.7 cm/s MV Area PHT 5.0 cm squared Mitral E to A Ratio 2.3 MV E' Velocity 65.5 cm/s Mitral E to MV E' Ratio 7.8 Mitral E to LV E' Lateral Ratio 7.7 Mitral E to LV E' Septal Ratio 8.1 TR Peak Velocity 150.5 cm/s TR Peak Gradient 9.1 mmHg RV Acceleration Time 0.1 s FINDINGS Left Ventricle Normal left ventricular size, systolic function and wall thickness, with no regional wall motion abnormalities. Left ventricular ejection fraction is estimated at 60-65 %. Rhythm precludes evaluation of diastolic function. Right Ventricle Normal right ventricular size and systolic function. Right Atrium Normal right atrial size. Left Atrium Mildly increased left atrial size. Mitral Valve Thickened mitral valve. No mitral valve stenosis. Trace mitral valve regurgitation. Aortic Valve Aortic valve not well visualized. No aortic valve stenosis. No aortic valve regurgitation. Tricuspid Valve Structurally normal tricuspid valve. No tricuspid valve stenosis. Trace to mild tricuspid valve regurgitation. Pulmonic Valve Pulmonic valve not well visualized. Pericardium No pericardial effusion. Aorta Normal size aortic root and proximal ascending aorta. IVC Inferior vena cava not visualized. CONCLUSIONS 1. Normal left ventricular size, systolic function and wall thickness, with no regional wall motion abnormalities. Left ventricular ejection fraction is estimated at 60-65 %. 2. No significant change when compared to study dated 11/21/2015.Ra Heena Malin MD (Electronically Signed) Final Date: 03 January 2023 18:17 S
[2023-01-03 14:45] LABS: Troponin 5 2HR 9.16 ng/L (0-15)
[2023-01-03 14:57] LABS: Troponin 5 2HR Delta -0.84 ABS# (0-10)
--- NOTE | 2023-01-03 15:22 | ECG_ITS ---
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 Measurements Intervals [place] Rate: 101 P: 0 [place]: 0 QRS: 81 QRSD: 134 T: 15 QT: 345 QTc: 448 Interpretive Statements ATRIAL FIBRILLATION WITH RAPID VENTRICULAR RESPONSE RIGHT BUNDLE BRANCH BLOCK [120+ ms QRS DURATION, UPRIGHT V1, 40+ ms S IN I/aVL/V4/V5/V6] Compared to ECG 01/03/2023 10:44:06 No significant change Electronically Signed On 01-04-2023 11:27:55 CDT by Heena Malin M.D. [id number]
[2023-01-03] MEDS: ipratropium-albuterol 3 mL Neb INHALATION (15:36)
[2023-01-03] MEDS: potassium chloride ER 20 mEq Tablet 40 MEQ PO (15:48)
[2023-01-03 17:01] LABS: Glucose Point of Care 249 mg/dL (70-110)
[2023-01-03 17:19] LABS: Magnesium 1.9 mg/dL (1.7-2.3); Troponin 5 6HR 10.37 ng/L (0-15)
[2023-01-03 17:25] LABS: Troponin 5 6HR Delta 0.37 ng/L (0-12)
[2023-01-03] MEDS: tamsulosin 0.4 mg Capsule PO (17:27)
[2023-01-03] MEDS: metoprolol succinate ER (24 HR) 100 mg Tablet PO (17:27)
[2023-01-03] MEDS: atorvastatin 40 mg Tablet 20 MG PO (17:27)
[2023-01-03] MEDS: insulin lispro 100 unit/1 mL SUBCUT ×2 (17:28→21:05)
[2023-01-03] MEDS: apixaban 5 mg Tablet 2.5 MG PO (17:28)
[2023-01-03] MEDS: ferrous sulfate EC 325 mg Tablet PO (17:28)
[2023-01-03 20:35] LABS: Glucose Point of Care 202 mg/dL (70-110)
[2023-01-04] VITALS (11 sets, daily range): BP systolic 96–124; BP diastolic 57–73; PULSE 82–110; RESP 16–18; TEMP 36.6–37.5; O2SAT 94–97
[2023-01-04 05:48] LABS: Basophils # 0.1 10^3/uL (0.0-0.1); Basophils % 0.3 %; Eosinophils % 0.1 %; Hematocrit 37.3 % (42.0-52.0); Hemoglobin 12.1 g/dL (11.7-16.6); Lymphocytes % 7.1 %; Mean Corpuscular HGB Conc 32.4 g/dL (30.0-36.0); Mean Corpuscular Hemoglobin 27.3 pg (28.0-34.0); Mean Corpuscular Volume 84.2 fl (80-94); Mean Platelet Volume 11.1 fL (7.4-10.4); Monocytes # 2.2 10^3/uL (0.2-0.9); Monocytes % 15.2 %; Neutrophils # 11.01 10^3/uL (1.8-7.7); Nucleated Red Blood Cells % 0 %; Platelet Count 190 10^3/cmm (130-400); Red Blood Count 4.43 10^6/uL (4.1-5.3); Red Cell Distribution Width 13.2 % (12.1-15.1); White Blood Count 14.3 10^3/uL (4.0-10.0)
[2023-01-04 06:21] LABS: Anion Gap 15.7 (5-19); Blood Urea Nitrogen 24 mg/dL (8-23); Calcium 8.4 mg/dL (8.5-10.5); Carbon Dioxide 26 mmol/L (22-29); Chloride 102 mmol/L (98-107); Glucose 160 mg/dL (65-115); Osmolality Calculated 297 mOsm/kg (285-295); Potassium 3.7 mmol/L (3.5-5.1); Sodium 140 mmol/L (136-145)
[2023-01-04 06:59] LABS: Glucose Point of Care 157 mg/dL (70-110)
[2023-01-04] MEDS: hydroCHLOROthiazide 25 mg Tablet PO (08:47)
[2023-01-04] MEDS: apixaban 5 mg Tablet 2.5 MG PO ×2 (08:47→17:55)
[2023-01-04] MEDS: ferrous sulfate EC 325 mg Tablet PO ×2 (08:47→17:56)
[2023-01-04] MEDS: metoprolol succinate ER (24 HR) 100 mg Tablet PO ×2 (08:47→17:55)
[2023-01-04] MEDS: montelukast sodium 10 mg Tablet PO (08:47)
[2023-01-04] MEDS: FUROsemide 20 mg Tablet PO (08:47)
[2023-01-04] MEDS: pantoprazole DR 40 mg Tablet PO (08:48)
[2023-01-04] MEDS: cefTRIAXone 1,000 MG in sodium chloride 0.9% (plus) 50 ML 100 MG IV (08:48)
[2023-01-04] MEDS: doxycycline 100 MG in sodium chloride 0.9% (plus) 100 ML IV ×2 (08:48→21:38)
[2023-01-04] MEDS: insulin lispro 100 unit/1 mL SUBCUT ×3 (08:49→21:38)
[2023-01-04] MEDS: ipratropium-albuterol 3 mL Neb INHALATION ×2 (10:03→14:52)
[2023-01-04 10:16] LABS: Thyroid Stimulating Hormone 2.04 uIU/mL (0.27-4.20)
--- NOTE | 2023-01-04 10:18 | PC.RESP ---
Pt had increased hr post treatment-120
[2023-01-04 12:02] LABS: Glucose Point of Care 246 mg/dL (70-110)
[2023-01-04 16:45] LABS: Glucose Point of Care 137 mg/dL (70-110)
[2023-01-04] MEDS: tamsulosin 0.4 mg Capsule PO (17:55)
[2023-01-04] MEDS: atorvastatin 40 mg Tablet 20 MG PO (17:55)
--- NOTE | 2023-01-04 18:13 | P.PN_ITS ---
Subjective Subjective: He is doing better today. Chest pain has resolved. No recurrence. States breathing is comfortable at rest, although he is on nasal cannula oxygen. Did get up to go to the restroom. Vitals/I&O/Wt Last Vital Signs Temp 99.5 F 01/04/23 16:00 Pulse 110 H 01/04/23 16:00 Resp 16 01/04/23 16:00 BP 121/64 01/04/23 16:00 Pulse Ox 94 01/04/23 16:00 O2 Del Method Nasal Cannula 01/04/23 14:00 O2 Flow Rate 2 01/04/23 14:00 01/04/23 01/04/23 01/04/23 06:59 14:59 22:59 Intake Total 830 / 830 Output Total 150 / 150 Balance -150 / 1700 830 / 830 Weight last 48 hrs Weight 83.642 kg Weight 83.915 kg Physical Exam Narrative: Accompanied by his . Const: COMMON NORMALS: patient oriented x3 and alert GENERAL APPEARANCE: cooperative ORIENTATION/CONSCIOUSNESS: Yes awake HENMT: COMMON NORMALS: oropharynx normal Neck/C-Spine: COMMON NORMALS: no JVD Resp: COMMON NORMALS: normal respiratory effort and clear to auscultation bilaterally AUSCULTATION: clear to auscultation bilaterally and diminished lung sounds (Minimally diminished) OTHER: Today conversing in longer sentences. Cardio: COMMON NORMALS: no JVD, regular rhythm, S1 normal heart sound present, S2 normal heart sound present and No murmurs present (Cardio) RHYTHM: regular rhythm HEART SOUNDS: S1 normal heart sound present and S2 normal heart sound present GI: COMMON NORMALS: Normal to inspection, nondistended, normoactive bowel sounds present, Soft to palpation and non-tender PALPATION: Yes Soft to palpation Extremity: COMMON NORMALS: no joint enlargement and no pedal edema Neuro: COMMON NORMALS: patient oriented x3 and moves all extremities SENSORIUM/ORIENTATION: Yes alert Skin: COMMON NORMALS: no rashes or lesions noted GENERAL SKIN EXAM: no rashes or lesions noted Data 01/04/23 05:17 01/04/23 05:17 Micro: Microbiology 01/03/23 16:00 Gram Stain - Final Sputum - Expectorated Sputum 01/03/23 15:35 MRSA Culture - Final Nose 01/03/23 11:52 Blood Culture - Preliminary Blood NEGATIVE TO DATE 01/03/23 11:52 Blood Culture - Preliminary Blood NEGATIVE TO DATE 01/03/23 16:08 Legionella Urinary Antigen - Final Urine,Clean Catch Bacterial Antigens - Final A&P Assessment and plan (1) Pneumonia: Symptomatically he is improving, although oxygenation has worsened. He is requiring 2 L nasal cannula. WBC count at her lower but persistent at 14.3. His pleuritic pain has resolved. Cardiac enzymes series noted unremarkable. TTE results noted, normal EF. No RWMA. Urine bacterial antigens obtained, noted negative, urine Legionella antigen noted negative. Sputum culture on Gram stain so far moderate WBC, few single cells, moderate gram-positive cocci in pairs chains and clusters, few gram- positive rods. Negative MRSA PCR. Continue ceftriaxone, azithromycin. Radiologist recommending follow-up for resolution of left lower lobe findings. Will need reassessment imaging with PCP in about 6 weeks. Left lower lobe pneumonia. Oxygen saturation borderline 92%. He does get very easily dyspneic, noticeable even with eating, longer sentences. Productive cough. Pleuritic chest discomfort in the left side. Normally on Eliquis, discussed with him consideration of PE, no other symptoms of DVT or PE, lower risk. Pleuritic chest pain resolved. Treat pneumonia, ceftriaxone, azithromycin. Collect sputum culture, urine bacterial antigens, MRSA PCR. So far has not required oxygen, monitor oxygenation. Moderate risk group curb 65 and PSI recommended hospitalization. Additionally underlying CAD, CKD, other comorbidities, at risk of complications. Noted leukocytosis, sinus tachycardia, possible sepsis not excluded, blood culture collected, follow-up. Lactate is normal. No signs of end organ injury at this time. Discussed with case management. (2) Chest pain: Atypical chest pain pleuritic. Resolved. Suspected pleuritic chest pain secondary to pneumonia. On Eliquis, lower likelihood of PE. Low risk group Wells score. Troponin series, TTE noted unremarkable. Lipase normal. Continue Eliquis, beta-erica, statin. (3) Shortness of breath: Hypoxia secondary to pneumonia. Continue treatment as above. Wean down oxygen as tolerating. Please obtain Home O2 eval prior to discharge home. NT-proBNP is higher than usual, However, does not appear heart failure. He does not appear fluid overloaded, no obvious JVD, no peripheral edema. Denies orthopnea, PND. Monitor volume status. Continue Lasix 20 mg daily. (4) Chills: Related to pneumonia as above. (5) Fatigue: Clear related to. Respiratory viral panel pending. TSH wnl Qualifiers: Fatigue type: unspecified Qualified Code(s): R53.83 - Other fatigue (6) Paroxysmal atrial fibrillation with RVR: Still with tachycardia, but heart rate overall with improvement, down to low 100. Anticipate should continue to improve with treatment of pneumonia. Continue verapamil, Metoprolol, Eliquis. Monitor on telemetry. Potassium up to 3.7. Magnesium 1.9. TTE noted as above. At risk of deterioration and significant disabling or life-threatening event with underlying CAD, status post CABG. Worsening tachycardia. Hemodynamic instability. Monitor on telemetry. (7) Abdominal mass: Please follow-up regarding 5.4 cm incidentally noted unidentified para-aortic mass, consider additional imaging as with CKD contrast-enhanced CT is not a very safe option, abdominal ultrasound requested in the meantime. (8) Adrenal mass: Follow-up with PCP with consideration for referral to surgery. 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 Given large size, consider surgical evaluation if not previously performed, which may be on a nonemergent basis. Plan DM2: SSI. CC diet. Accu-Cheks. Hold oral hypoglycemics for now. A-fib: Currently A-fib with mild RVR, heart rates 100 teens. Continue verapamil. He just got his morning medications recently. CKD: Monitor renal function. Avoid nephrotoxins. HTN: Monitor blood pressures. Continue metoprolol, HCTZ. BPH: Continue Flomax HLD: Continue statin Possible undiagnosed COPD: Suggested previously clinically, has not had any pulmonary function testing. Follow-up with PCP would benefit from assessment af ter recovers from acute condition. CAD, Hx CABG, history provided by his , continue statin, beta-erica, monitor on telemetry. Complete troponin EKG series Attestations Medical Necessity Statement*: Admission of over 2 midnights anticipated for assessment management of pneumonia, possible sepsis with moderate risk in a gentleman with underlying multiple complaints including CAD, status post CABG, CKD, multiple additional comorbidities as above. Diagnoses Pneumonia J18.9 Chest pain R07.9 Shortness of breath R06.02 Chills R68.83 Fatigue R53.83 Fatigue type: unspecified Paroxysmal atrial fibrillation with RVR I48.0 Abdominal mass R19.00 Adrenal mass E27.8
[2023-01-04 20:57] LABS: Glucose Point of Care 220 mg/dL (70-110)
[2023-01-05] VITALS (13 sets, daily range): BP systolic 118–137; BP diastolic 63–77; PULSE 79–117; RESP 16–18; TEMP 36.3–36.6; O2SAT 87–97
[2023-01-05 05:42] LABS: Basophils % 0.3 %; Eosinophils # 0.1 10^3/uL (0.0-0.8); Eosinophils % 0.5 %; Hemoglobin 11.6 g/dL (11.7-16.6); Lymphocytes # 0.9 10^3/uL (0.8-4.8); Lymphocytes % 6.2 %; Mean Corpuscular HGB Conc 33.1 g/dL (30.0-36.0); Mean Corpuscular Hemoglobin 27.2 pg (28.0-34.0); Monocytes # 1.9 10^3/uL (0.2-0.9); Neutrophils # 11.61 10^3/uL (1.8-7.7); Neutrophils % 79.7 %; Nucleated Red Blood Cells % 0 %; Platelet Count 187 10^3/cmm (130-400); Red Blood Count 4.27 10^6/uL (4.1-5.3); Red Cell Distribution Width 13.3 % (12.1-15.1); White Blood Count 14.6 10^3/uL (4.0-10.0)
[2023-01-05 06:02] LABS: Blood Urea Nitrogen 23 mg/dL (8-23); Calcium 8.2 mg/dL (8.5-10.5); Carbon Dioxide 25 mmol/L (22-29); Chloride 98 mmol/L (98-107); Glucose 129 mg/dL (65-115); Osmolality Calculated 285 mOsm/kg (285-295); Sodium 135 mmol/L (136-145)
[2023-01-05 06:03] LABS: Anion Gap 15.1 (5-19); Potassium 3.1 mmol/L (3.5-5.1)
[2023-01-05 06:55] LABS: Glucose Point of Care 166 mg/dL (70-110)
[2023-01-05] MEDS: ipratropium-albuterol 3 mL Neb INHALATION ×2 (08:00→13:57)
[2023-01-05] MEDS: insulin lispro 100 unit/1 mL SUBCUT ×3 (08:39→18:36)
[2023-01-05] MEDS: ferrous sulfate EC 325 mg Tablet PO ×2 (08:39→18:34)
[2023-01-05] MEDS: apixaban 5 mg Tablet 2.5 MG PO ×2 (08:39→18:35)
[2023-01-05] MEDS: montelukast sodium 10 mg Tablet PO (08:39)
[2023-01-05] MEDS: FUROsemide 20 mg Tablet PO (08:40)
[2023-01-05] MEDS: hydroCHLOROthiazide 25 mg Tablet PO (08:40)
[2023-01-05] MEDS: pantoprazole DR 40 mg Tablet PO (08:40)
[2023-01-05] MEDS: metoprolol succinate ER (24 HR) 100 mg Tablet PO ×2 (08:40→18:36)
[2023-01-05] MEDS: doxycycline 100 MG in sodium chloride 0.9% (plus) 100 ML IV (08:40)
[2023-01-05] MEDS: cefTRIAXone 1,000 MG in sodium chloride 0.9% (plus) 50 ML 100 MG IV (08:41)
[2023-01-05 11:45] LABS: Glucose Point of Care 207 mg/dL (70-110)
--- NOTE | 2023-01-05 11:45 | PM.DCS ---
Discharge Providers Date of Admission: 01/03/23 11:40 Date of Discharge: January 05, 2023 Attending Provider at Admission: Khari Gay Attending Provider at Discharge: Khari Gay Primary Care Provider: Shar Che MD Diagnoses at Discharge Discharge Diagnosis (1) Pneumonia: Status: Acute (2) Chest pain: Status: Acute (3) Shortness of breath: Status: Acute (4) Chills: Status: Acute (5) Fatigue: Status: Acute Qualifiers: Fatigue type: unspecified Qualified Code(s): R53.83 - Other fatigue (6) Paroxysmal atrial fibrillation with RVR: Status: Acute (7) Abdominal mass: Status: Acute (8) Adrenal mass: Status: Acute Reason for Visit Reason for Visit: Pain in left side SOB Hospital Course Hospital Course 82-year-old male with history of paroxysmal A-fib, on anticoagulating agent, type 2 diabetes, chronic kidney disease, possible COPD history of CABG was admitted for management of shortness of breath he was diagnosed with left lower lobe pneumonia with parapneumonic effusion, for his left lower quadrant pain CT abdomen pelvis was requested without contrast which showed incidental finding of para-aortic mass 5.4 cm which could possibly cluster of lymph nodes we could not do contrast study hence MRI abdomen pelvis was requested abdominal ultrasound was also nonspecific patient is denying B-cell symptoms, he has not been requiring oxygen at home here in the hospital he required 2 L of oxygen, suspicion for PE is low as he is already on anticoagulating agent, abdominal pain has improved, heart rate 84, blood pressure 118/77 mmhg Requested home oxygen evaluation before discharge along MRI abdomen pelvis I will also repeat his chest x-ray for resolution of parapneumonic fusion and pneumonia within 4 weeks Cultures remain negative, I will give him Augmentin 5-day course creatinine seems to be stable on baseline Patient does not have an official diagnosis of COPD, uses CPAP at night for sleep hyperinflated lungs on chest x-ray, I will go ahead add Spiriva and Symbicort along albuterol Physical Exam Narrative: Awake and alert Currently on 2 L Abdomen soft GCS 15 Abdominal exam is benign No pulsatile mass seen during physical inspection of abdomen Awake and alert nonfocal neuro exam GCS 15 S1, S2 variable Discharge Data Studies Completed and Pending Completed Studies During Hospitalization Category Date Time Status CT abdomen pelvis [facility] [id number] Routine Cat Scan 01/03/23 13:18 Completed XR chest 1V portable [id number] Stat Exams 01/03/23 08:49 Completed CV. echo complete* [id number] Routine Ultrasound 01/03/23 14:20 Completed US abdomen limited [id number] Routine Ultrasound 01/05/23 18:11 Completed Pending at discharge Category Date Time Status Basic Metabolic Panel AM LABS Lab 01/06/23 04:00 Ordered Blood Culture Stat Lab 01/03/23 11:52 Results Complete Blood Count w/Auto AM LABS Lab 01/06/23 04:00 Ordered Sputum Culture and Gram Stain Routine Lab 01/03/23 16:00 Results Radiology Impressions Chest X-Ray 01/03/23 08:49 IMPRESSION: Left lower lobe pneumonia and small parapneumonic effusion. Recommend imaging followup to resolution to exclude an underlying lesion. THIS REPORT CONTAINS FINDINGS THAT MAY BE CRITICAL TO PATIENT CARE. The findings were verbally communicated via telephone conference with Jadiel Hernandez at 9:44 AM CDT on 01/03/2023. The findings were acknowledged and understood. Abdomen/Pelvis CT 01/03/23 13:18 IMPRESSION: 1. No acute findings. 2. 5.4 cm long left para-aortic mass may represent necrotic lymph node. Suggested feeding and draining vessels. Recommend contrast-enhanced CT and testicular exam with consideration for ultrasound as indicated. 3. Known left lower lobe pneumonia. Recommend imaging followup to resolution to exclude an underlying lesion. 4. 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 Given large size, consider surgical evaluation if not previously performed, which may be on a nonemergent basis. 5. Atherosclerosis. 6. Prostatomegaly. Abdomen Ultrasound 01/05/23 18:11 IMPRESSION: Reidentified is the LEFT periaortic mass seen by CT. Very nonspecific and may be a cluster of lymph nodes. Laboratory Results WBC 14.6 10^3/uL (4.0-10.0) H 01/05/23 05:16 RBC 4.27 10^6/uL (4.1-5.3) 01/05/23 05:16 Hgb 11.6 g/dL (11.7-16.6) L 01/05/23 05:16 Hct 35.0 % (42.0-52.0) L 01/05/23 05:16 MCV 82.0 fl (80-94) 01/05/23 05:16 MCH 27.2 pg (28.0-34.0) L 01/05/23 05:16 MCHC 33.1 g/dL (30.0-36.0) 01/05/23 05:16 RDW 13.3 % (12.1-15.1) 01/05/23 05:16 Plt Count 187 10^3/cmm (130-400) 01/05/23 05:16 MPV 11.0 fL (7.4-10.4) H 01/05/23 05:16 Neut % (Auto) 79.7 % 01/05/23 05:16 Lymph % (Auto) 6.2 % 01/05/23 05:16 [place] % (Auto) 13.0 % 01/05/23 05:16 Eos % (Auto) 0.5 % 01/05/23 05:16 Baso % (Auto) 0.3 % 01/05/23 05:16 Neut # (Auto) 11.61 10^3/uL (1.8-7.7) H 01/05/23 05:16 Lymph # (Auto) 0.9 10^3/uL (0.8-4.8) 01/05/23 05:16 [place] # (Auto) 1.9 10^3/uL (0.2-0.9) H 01/05/23 05:16 Eos # (Auto) 0.1 10^3/uL (0.0-0.8) 01/05/23 05:16 Baso # (Auto) 0.0 10^3/uL (0.0-0.1) 01/05/23 05:16 Nucleated RBC % (auto) 0 % 01/05/23 05:16 Nucleated RBCs # 0.0 /100WBC 01/05/23 05:16 Sodium 135 mmol/L (136-145) L 01/05/23 05:16 Potassium 3.1 mmol/L (3.5-5.1) L 01/05/23 05:16 Chloride 98 mmol/L (98-107) 01/05/23 05:16 Carbon Dioxide 25 mmol/L (22-29) 01/05/23 05:16 Anion Gap 15.1 (5-19) 01/05/23 05:16 BUN 23 mg/dL (8-23) 01/05/23 05:16 Creatinine 1.4 mg/dL (0.7-1.2) H 01/05/23 05:16 GFR Calculation Not Reportable 01/05/23 05:16 Glucose 129 mg/dL (65-115) H 01/05/23 05:16 POC Glucose 166 mg/dL (70-110) H 01/05/23 06:48 Calculated Osmolality 285 mOsm/kg (285-295) 01/05/23 05:16 Lactic Acid 1.2 mmol/L (0.5-2.2) 01/03/23 09:28 Calcium 8.2 mg/dL (8.5-10.5) L 01/05/23 05:16 Magnesium 1.9 mg/dL (1.7-2.3) 01/03/23 16:38 Total Bilirubin 0.9 mg/dL (0.15-1.2) 01/03/23 09:28 AST 13 U/L (0-40) 01/03/23 09:28 ALT 10 U/L (0-41) 01/03/23 09:28 Alkaline Phosphatase 101 U/L (40-130) 01/03/23 09:28 Troponin T Baseline 10 ng/L (0-15) 01/03/23 09:28 Troponin T 120 Minute 9.16 ng/L (0-15) 01/03/23 11:52 Delta Troponin T -0.84 ABS# (0-10) L 01/03/23 11:52 Troponin T Hi Sens 6Hr 10.37 ng/L (0-15) 01/03/23 16:38 Troponin T Hi Sens 6Hr Delta 0.37 ng/L (0-12) 01/03/23 16:38 NT-Pro-B Natriuret Pep 3477 pg/mL (0-450) H 01/03/23 09:28 Total Protein 6.2 g/dL (6.6-8.7) L 01/03/23 09:28 Albumin 3.8 g/dL (3.5-5.2) 01/03/23 09:28 Globulin 2.4 g/dL (1.3-4.6) 01/03/23 09:28 Lipase 29 U/L (13-60) 01/03/23 09:28 TSH 2.04 uIU/mL (0.27-4.20) 01/04/23 05:17 Nasal Influ A H1 2009 PCR Not detected (NOT DETECT) 01/03/23 09:08 Adenovirus (PCR) Not detected (NOT DETECT) 01/03/23 09:08 C. pneumoniae DNA (PCR) Not detected (NOT DETECT) 01/03/23 09:08 Coronavirus 229E (PCR) Not detected (NOT DETECT) 01/03/23 09:08 Human Metapneumovir PCR Not detected (NOT DETECT) 01/03/23 09:08 Influenza A (H1) PCR Not detected (NOT DETECT) 01/03/23 09:08 Influenza A (H3) PCR Not detected (NOT DETECT) 01/03/23 09:08 Influenza Type A (PCR) Not detected (NOT DETECT) 01/03/23 09:08 Influenza Type B (PCR) Not detected (NOT DETECT) 01/03/23 09:08 M. pneumoniae (PCR) Not detected (NOT DETECT) 01/03/23 09:08 Parainfluenza 1 (PCR) Not detected (NOT DETECT) 01/03/23 09:08 Parainfluenza 2 (PCR) Not detected (NOT DETECT) 01/03/23 09:08 Parainfluenza 3 (PCR) Not detected (NOT DETECT) 01/03/23 09:08 Parainfluenza 4 (PCR) Not detected (NOT DETECT) 01/03/23 09:08 RSV Type A (PCR) Not detected (NOT DETECT) 01/03/23 09:08 RSV Type B (PCR) Not detected (NOT DETECT) 01/03/23 09:08 Entero/Rhino (PCR) Not detected (NOT DETECT) 01/03/23 09:08 SARS-CoV-2 (PCR) Not detected (NOT DETECT) 01/03/23 09:08 Vitals Last Vital Signs Temp 97.4 F L 01/05/23 11:08 Pulse 84 01/05/23 11:08 Resp 18 01/05/23 11:08 BP 118/77 01/05/23 11:08 Pulse Ox 97 01/05/23 11:08 O2 Del Method Nasal Cannula 01/05/23 11:08 O2 Flow Rate 2 01/05/23 08:39 Discharge Plan Discharge Patient Disposition: Home Condition: Stable Prescriptions: New budesonide-formoterol [Symbicort] 80-4.5 mcg/actuation HFA aerosol inhaler 2 inh inhalation BID Qty: 10.2 0RF albuterol sulfate 90 mcg/actuation HFA aerosol inhaler 2 inh inhalation Q8H PRN (Reason: shortness of breath or wheezing) Qty: 8.5 0RF amoxicillin-pot clavulanate 875-125 mg tablet 1 tab PO BID Qty: 10 0RF Spiriva Respimat 1.25 mcg/actuation mist 2 inh inhalation DAILY Qty: 4 0RF Continued cholecalciferol (vitamin D3) 10 mcg (400 unit) capsule 10 mcg PO DAILY montelukast 10 mg tablet 10 mg PO DAILY ergocalciferol (vitamin D2) 400 unit tablet 400 unit PO DAILY ascorbate calcium (vitamin C) 500 mg tablet 500 mg PO BID cetirizine 10 mg tablet 10 mg PO DAILY PRN (Reason: Allergy Symptoms) calcium carbonate [Calcium 600] 600 mg calcium (1,500 mg) tablet 600 mg PO DAILY vitamin E (dl, acetate) 180 mg (400 unit) capsule 180 mg PO DAILY nitroglycerin 0.4 mg tablet, sublingual 0.4 mg sublingual Q5M PRN (Reason: Chest Pain) Rx Instructions: do not exceed 3 doses per episode fluticasone propionate 50 mcg/actuation spray,suspension 2 spray intranasal DAILY Qty: 16 2RF Rx Instructions: administer into each nostril potassium chloride [Klor-Con 10] 10 mEq tablet extended release 10 meq PO DAILY PRN (Reason: On days that you take Furosemide) Qty: 30 6RF furosemide 20 mg tablet 20 mg PO DAILY Qty: 30 2RF Rx Instructions: Take one tab PO daily for two weeks then as needed for swelling or shortness of breath. cyanocobalamin (vitamin B-12) 1,000 mcg tablet See Rx Instructions .ROUTE .COMPLEX Qty: 90 3RF Dose Instruction: TAKE ONE TABLET BY MOUTH ONCE DAILY Rx Instructions: TAKE ONE TABLET BY MOUTH ONCE DAILY (DME) Diabetic shoes See Rx Instructions .Route .MEDSUPPLY Qty: 1 0RF Rx Instructions: As directed (DME) cpap machine and supplies See Rx Instructions .Route .MEDSUPPLY Qty: 1 0RF Rx Instructions: As directed - Settings 5-10 cm H2O - Auto-titrating Januvia 100 mg tablet 100 mg PO DAILY Qty: 90 2RF ferrous sulfate 325 mg (65 mg iron) tablet 325 mg PO BID Qty: 60 6RF glimepiride 4 mg tablet 4 mg PO DAILY Qty: 90 3RF Eliquis 2.5 mg tablet 2.5 mg PO BID 90 Days Qty: 180 3RF benzonatate 100 mg capsule 100 mg PO TID PRN (Reason: cough) Qty: 45 0RF PreserVision AREDS-2 250-90-40-1 mg Capsule 1 tab PO BID metoprolol succinate 100 mg tablet extended release 24 hr 100 mg PO BID tamsulosin 0.4 mg capsule 0.4 mg PO QPM pantoprazole 40 mg tablet,delayed release (DR/EC) 40 mg PO DAILY pravastatin 20 mg tablet 20 mg PO QPM verapamil 80 mg tablet 40 mg PO BID Discontinued metformin 500 mg tablet 500 mg PO BID Qty: 180 3RF hydrochlorothiazide 25 mg tablet 25 mg PO DAILY Discharge Orders: Discharge Order (Routine); Ordered 01/05/23 Ordered By: Geovani Liu Other Ambulatory Orders: XR chest 2V insp/exp [id number] (Routine) Timeframe: 3 Weeks Facility: [facility] - Location: Rad[facility] [place] [facility] Ordered By: Geovani Liu Referrals: Shar Che MD [Primary Care Provider] - 1 month Discharge Diet: Cardiac Discharge Activity: Increase activity as tolerated Patient Instructions: Opioid Safety Discharge Attestations Time Spent in Discharge Care*: greater than 30 min Quality Metrics Clinical Quality Measures [ No reported AMI, CVA or VTE this stay] Coding Level of Care Code Acute Code for Chg Fwd Diagnoses Pneumonia J18.9 Chest pain R07.9 Shortness of breath R06.02 Chills R68.83 Fatigue R53.83 Fatigue type: unspecified Paroxysmal atrial fibrillation with RVR I48.0 Abdominal mass R19.00 Adrenal mass E27.8
--- NOTE | 2023-01-05 11:46 | MRR_ITS ---
PROCEDURE INFORMATION: Exam: MR Abdomen Without Contrast Exam date and time: 01/05/2023 5:30 PM Age: 82 years old Clinical indication: Abdominal pain; Patient HX: Paraaortic mass TECHNIQUE: Imaging protocol: Magnetic resonance imaging of the abdomen without contrast. COMPARISON: CT abdomen pelvis wo con [id number] 01/03/2023 2:17 PM FINDINGS: Lungs: Consolidation in the left lung is again present similar to the comparison CT. Liver: No mass. Gallbladder and bile ducts: Unremarkable. No stones. No ductal dilation. Pancreas: Unchanged pancreatic fatty atrophy. Spleen: 12 mm T2 hyperintensity in the inferior spleen likely hemangioma. Adrenal glands: Left-sided adrenal gland mass measuring 3.8 x 4.6 cm and containing macroscopic fat is unchanged and consistent with an adrenal myelolipoma. Kidneys and ureters: Subcentimeter left renal cysts. Stomach and bowel: Visualized stomach and intestines are unremarkable. Retroperitoneal space: Left-sided periaortic mass measures 2.5 x 2.2 by 5.4 cm which is unchanged with the comparison CT scan. Central portion of the node is T2 hyperintense suggesting necrosis. No other lymph nodes are seen. Intraperitoneal space: No free fluid. Vasculature: No abdominal aortic aneurysm. Bones/joints: Unremarkable. Soft tissues: Unremarkable. MR/MR abdomen wo con [id number] IMPRESSION: 1. Unchanged left-sided para-aortic necrotic appearing mass again suspicious for adenopathy. Consider PET scan for follow-up. 2. Unchanged left adrenal gland mass consistent with a myelolipoma. 3. Persistent left lower lobe consolidation. COMMENTS: Consistent with the [employer]'s Incidental Findings Committee white paper (J Am Joseph Radiol 2018): Any incidental renal lesion less than 1 cm or classified as too small to characterize, or any incidental cystic renal lesion characterized as simple-appearing, is likely benign. No follow-up imaging is recommended for these lesions per consensus recommendations based on imaging criteria.
--- NOTE | 2023-01-05 11:46 | MRR_ITS ---
PROCEDURE INFORMATION: Exam: MR Pelvis Without Contrast Exam date and time: 01/05/2023 5:58 PM Age: 82 years old Clinical indication: Pelvic pain; Patient HX: Paraaortic mass; Additional info: Para aortic mass TECHNIQUE: Imaging protocol: Magnetic resonance imaging of the pelvis without contrast. COMPARISON: CT abdomen pelvis wo con [id number] 01/03/2023 2:17 PM FINDINGS: Intraperitoneal space: No free fluid. Urinary bladder: The bladder wall is thickened with small diverticuli. Reproductive: Prostatomegaly. Lymph nodes: The inferior extent of the known periaortic mass is partially imaged. No other adenopathy. Bones/joints: Unremarkable. No fracture. Soft tissues: Unchanged midline ventral abdominal wall musculature laxity. Stomach and bowel: Colonic diverticuli. MR/MR pelvis wo con* [id number] IMPRESSION: 1. The inferior extent of the known periaortic mass is partially imaged. No other adenopathy. 2. Prostatomegaly with thickened bladder. This may be related to chronic outlet obstruction. Correlate for cystitis.
[2023-01-05] MEDS: potassium chloride ER 20 mEq Tablet 40 MEQ PO (12:52)
[2023-01-05 16:58] LABS: Glucose Point of Care 241 mg/dL (70-110)
--- NOTE | 2023-01-05 18:11 | US_ITS ---
WS: [id number] Limited abdomen ultrasound. HISTORY: Retroperitoneal mass. COMPARISON: 01/01/2023. Heavily calcified abdominal aorta with no aneurysm. Adjacent to the aorta is a hypoechoic mass measur ing 2.3 x 1.8 cm and extending over a length of 6.3 cm. No increased vascularity is identified by ult rasound. This corresponds to the mass seen by CT. Very nonspecific. US/US abdomen limited [id number] IMPRESSION: Reidentified is the LEFT periaortic mass seen by CT. Very nonspecific and may b e a cluster of lymph nodes.
[2023-01-05] MEDS: atorvastatin 40 mg Tablet 20 MG PO (18:35)
[2023-01-05] MEDS: tamsulosin 0.4 mg Capsule PO (18:36)
== END 2023-01-05 19:15 | disposition home or self-care (01) | DRG 190 ==
LOC: ER 11:39 → MEDSURG 01-04 02:26
PROVIDERS: Admitting Provider Internal Medicine; Emergency Provider Emergency Medicine; PCP Family Medicine; Visit Provider Internal Medicine
DX: J44.0 Chronic obstructive pulmonary disease with (acute) lower respiratory infection (principal); J18.9 Pneumonia, unspecified organism; N13.8 Other obstructive and reflux uropathy; I48.0 Paroxysmal atrial fibrillation; E11.22 Type 2 diabetes mellitus with diabetic chronic kidney disease; I12.9 Hypertensive chronic kidney disease with stage 1 through stage 4 chronic kidney disease, or unspecified chronic kidney disease; N18.9 Chronic kidney disease, unspecified; I25.10 Atherosclerotic heart disease of native coronary artery without angina pectoris; Z95.1 Presence of aortocoronary bypass graft; R19.09 Other intra-abdominal and pelvic swelling, mass and lump; Z99.89 Dependence on other enabling machines and devices; Z79.01 Long term (current) use of anticoagulants; Z79.84 Long term (current) use of oral hypoglycemic drugs; D17.79 Benign lipomatous neoplasm of other sites; G47.33 Obstructive sleep apnea (adult) (pediatric); E78.5 Hyperlipidemia, unspecified; Z85.828 Personal history of other malignant neoplasm of skin; Z87.891 Personal history of nicotine dependence; N40.1 Benign prostatic hyperplasia with lower urinary tract symptoms
CPT/HCPCS: 36415; 36416; 71045; 72195; 74176; 74181; 76705; 80048; 80053; 82962; 83605; 83690; 83735; 83880; 84443; 84484; 85025; 86403; 87040; 87070; 87205; 87449; 87486; 87581; 87633; 87641; 93005; 93306; 94640; 94664; 94760; 96365; 96367; 96372; 99285; J0696; J1815; J3490; J7030

== ENCOUNTER → 2023-01-13 14:15 | Outpatient (BNVA) | payer MEDICARE, OTHER, SELFPAY | PROVIDERS: PCP Family Medicine; Visit Provider Family Medicine | DX: R19.7 Diarrhea, unspecified (principal); E11.9 Type 2 diabetes mellitus without complications; Z51.81 Encounter for therapeutic drug level monitoring; R19.00 Intra-abdominal and pelvic swelling, mass and lump, unspecified site; J18.9 Pneumonia, unspecified organism; J91.8 Pleural effusion in other conditions classified elsewhere; E87.6 Hypokalemia | CPT/HCPCS: 87493; 87506 ==

== ENCOUNTER → 2023-01-26 14:31 | Outpatient (BNVA) | payer MEDICARE, OTHER, SELFPAY | PROVIDERS: PCP Family Medicine; Visit Provider Family Medicine | DX: Z51.81 Encounter for therapeutic drug level monitoring (principal); E11.9 Type 2 diabetes mellitus without complications; D64.9 Anemia, unspecified; E87.6 Hypokalemia | CPT/HCPCS: 80053; 83036; 83550; 85025 ==

== ENCOUNTER 2023-01-31 08:24 | Outpatient (CLI) | payer MEDICARE, OTHER, SELFPAY ==
--- NOTE | 2023-01-31 09:00 | PETR_ITS ---
PROCEDURE INFORMATION: Exam: PET/CT Skull Base to Mid-thigh Exam date and time: 01/31/2023 9:43 AM Age: 83 years old Clinical indication: Abnormal findings; Intra abdominal and pelvic swelling, mass unspecified; Additional info: Mass near abdominal aorta, needing to see if there is another lesion that is more LABS AND CLINICAL REPORTS: Glucose: 114 mg/dl Treatment strategy for malignancy (PET staging): Initial Staging (PI) TECHNIQUE: Imaging protocol: Following at least four-hour fasting and following the injection of radiopharmaceutical, low dose CT images were obtained. Then, PET images were obtained. Attenuation corrected images were constructed using the CT scan. Fused images of PET and CT were reviewed. The standardized uptake values (SUV) reported below are maximum values within a region of interest, expressed in gm/ml. Exam includes orbital meatal line to mid-thigh. Radiopharmaceutical: 13.37 mCi F-18 FDG (Fluorodeoxyglucose), IV. Time of imaging post radiopharmaceutical administration: 1 hour Injection site: Left antecubital COMPARISON: CT abdomen pelvis wo con [id number] 01/03/2023 2:17 PM, MRI abdomen and pelvis 01/05/2023, abdominal ultrasound 01/05/2023, CT chest 11/25/2018 FINDINGS: Brain: Visualized brain has normal physiologic uptake. Pharynx: No abnormal uptake. Larynx: No abnormal uptake. Lungs, pleura and trachea: Similar patchy consolidation in the left lower lobe demonstrates elevated uptake, SUV max 5.0. Non radiotracer avid calcified pleural plaque in the inferior right lower lobe is noted. Bilateral calcified granulomas within the lungs are noted. Mild bilateral centrilobular emphysematous changes are present. Heart: Normal physiologic uptake. Mediastinal space: No abnormal uptake. Liver: No abnormal uptake. Calcified granulomas in the liver are noted. Gallbladder and bile ducts: No abnormal uptake. Pancreas: No abnormal uptake. Spleen: No abnormal uptake. Adrenal glands: An ovoid mass in the left adrenal gland measures 4.7 x 3.6 cm on series 3, image 81 with soft tissue density and fat density components, SUV max 2.3. This has been stable in size since at least 11/25/2018. Unremarkable right adrenal gland. Kidneys and ureters: Normal physiologic uptake. Stomach and bowel: No abnormal uptake. There are scattered colonic diverticula. Reproductive: There is moderate prominence of the prostate gland without elevated uptake. Vasculature: No abnormal uptake. Lymph nodes: Mildly prominent, mildly radiotracer avid mediastinal and bilateral hilar lymph nodes are noted, some which are calcified. For example, a cluster of subcarinal lymph nodes measures 4.5 x 1.6 cm on series 3, image 57, SUV max 4.2. A left periaortic lymph node or cluster of lymph nodes in the aortopulmonary window measures 2.3 cm in diameter on series 3, image 49, SUV max 3.7. Mild inferior left hilar uptake on series 4, image 60 is noted, SUV max 3.6, and uptake in the right hilar region demonstrates an SUV max 3.9 on series 4, image 58. Assessment of the size of hilar lymph nodes is somewhat difficult without intravenous contrast. Bones/joints: No abnormal uptake in the visualized axial and appendicular skeleton. Sternotomy wires are present. Vertically oriented lucent striations in the L1 vertebral body are noted without elevated uptake compatible with the presence of a benign hemangioma.There is mild diffuse vertebral body spondylosis. A non radiotracer avid spiculated sclerotic density in the right acetabular roof measures 8 mm and is compatible with a benign bone island. Soft tissues: A previously identified left retroperitoneal periaortic soft tissue density structure with punctate central calcification in the inferior abdomen measures 2.3 x 2.0 cm in the axial plane on series 3, image 107 by 5.9 cm superior to inferior and is not radiotracer avid, SUV max 1.9. METRICS: Mediastinal blood pool: SUV max 2.4 PET/[facility] INITIAL [id number] IMPRESSION: 1. Radiotracer avid patchy consolidation in the left lower lobe is noted, most consistent with an infectious infiltrate. Underlying neoplastic involvement is less likely however continued radiographic and/or CT surveillance is recommended to demonstrate resolution of this process. 2. A non radiotracer avid stable left adrenal mass is noted, most consistent with a myelolipoma. 3. An ovoid retroperitoneal left periaortic mass does not demonstrate significant uptake (SUV max 1.9) which favors a benign etiology. 4. Elevated uptake is identified in mediastinal and hilar lymph nodes which may be inflammatory or infectious in etiology. A malignant etiology is less likely but cannot be entirely excluded. 5. Centrilobular emphysematous changes. 6. Colonic diverticulosis. 7. Old granulomatous changes. 8. Additional nonurgent findings as detailed above.
== END 2023-01-31 08:25 | disposition home or self-care (01) ==
LOC: RAD 02-02 05:24
PROVIDERS: PCP Family Medicine; Visit Provider Family Medicine
DX: R19.09 Other intra-abdominal and pelvic swelling, mass and lump (principal); R91.8 Other nonspecific abnormal finding of lung field; E27.9 Disorder of adrenal gland, unspecified; K57.90 Diverticulosis of intestine, part unspecified, without perforation or abscess without bleeding
CPT/HCPCS: 78815; A9552

== ENCOUNTER → 2023-02-12 13:16 | Outpatient (BNVA) | payer MEDICARE, OTHER, SELFPAY | PROVIDERS: PCP Family Medicine; Visit Provider Internal Medicine Cardiovascular Disease | DX: I48.0 Paroxysmal atrial fibrillation (principal); I25.10 Atherosclerotic heart disease of native coronary artery without angina pectoris; I12.9 Hypertensive chronic kidney disease with stage 1 through stage 4 chronic kidney disease, or unspecified chronic kidney disease; E11.22 Type 2 diabetes mellitus with diabetic chronic kidney disease; N18.9 Chronic kidney disease, unspecified; E78.5 Hyperlipidemia, unspecified; Z95.1 Presence of aortocoronary bypass graft; Z79.01 Long term (current) use of anticoagulants; G47.33 Obstructive sleep apnea (adult) (pediatric); Z99.89 Dependence on other enabling machines and devices; Z87.891 Personal history of nicotine dependence; Z79.84 Long term (current) use of oral hypoglycemic drugs | CPT/HCPCS: 99214 ==

== ENCOUNTER → 2023-02-25 14:37 | Outpatient (BNVA) | payer MEDICARE, OTHER, SELFPAY | PROVIDERS: PCP Family Medicine; Visit Provider Dermatology | DX: L57.0 Actinic keratosis (principal); D22.39 Melanocytic nevi of other parts of face; L82.1 Other seborrheic keratosis; L81.4 Other melanin hyperpigmentation; Z85.828 Personal history of other malignant neoplasm of skin | CPT/HCPCS: 17000; 17003; 99213 ==

== ENCOUNTER → 2023-03-27 08:27 | Outpatient (BNVA) | payer MEDICARE, OTHER, SELFPAY | PROVIDERS: PCP Family Medicine; Visit Provider Nurse Practitioner | DX: Z96.653 Presence of artificial knee joint, bilateral; M25.561 Pain in right knee; M25.562 Pain in left knee; G89.29 Other chronic pain; S89.91XA Unspecified injury of right lower leg, initial encounter; W06.XXXA Fall from bed, initial encounter | CPT/HCPCS: 73560; 73565 ==

== ENCOUNTER 2023-03-27 09:32 | Outpatient (CLI) | payer MEDICARE, OTHER, SELFPAY ==
--- NOTE | 2023-03-27 09:42 | XR_ITS ---
WS: [id number] PA chest, inspiration and expiration, 03/27/2023 Clinical Data: Parapneumonic effusion, pneumonia Comparison: Portable chest, 01/03/2023 Findings: There is little change in the lung volume between inspiration and expiration. The diaphragms are flat tened with atelectatic basilar changes. No nodules, masses or effusions are seen. No mediastinal sriram ation is seen on expiration or inspiration. The heart is normal. The aortic arch shows tortuosity. Th ere are midline sternotomy sutures. Impression: 1. Minimal change in lung volume between inspiration and expiration which may indicate restrictive magdy ng disease. 2. Atherosclerosis and hyperinflation.
== END 2023-03-27 09:33 | disposition home or self-care (01) ==
PROVIDERS: PCP Family Medicine; Visit Provider Internal Medicine
DX: J18.9 Pneumonia, unspecified organism (principal); J91.8 Pleural effusion in other conditions classified elsewhere
CPT/HCPCS: 71046; 99214

== ENCOUNTER 2023-04-02 06:00 | Outpatient (RCR) | payer MEDICARE, OTHER, SELFPAY | END 2023-04-14 23:59 | disposition home or self-care (01) | LOC: APT 06:00 | PROVIDERS: PCP Family Medicine; Visit Provider Nurse Practitioner | DX: M25.561 Pain in right knee (principal); M25.562 Pain in left knee | CPT/HCPCS: 97110; 97112; 97140; 97163; 97530 ==

== ENCOUNTER 2023-04-15 06:00 | Outpatient (RCR) | payer MEDICARE, OTHER, SELFPAY | END 2023-05-14 23:59 | disposition home or self-care (01) | LOC: APT 06:00 | PROVIDERS: PCP Family Medicine; Visit Provider Nurse Practitioner | DX: Z47.1 Aftercare following joint replacement surgery (principal); Z96.653 Presence of artificial knee joint, bilateral | CPT/HCPCS: 97110; 97140; 97530 ==

== ENCOUNTER 2023-05-07 09:53 | Emergency (ER) | payer MEDICARE, OTHER, SELFPAY ==
[2023-05-07 10:01] VITALS: BP 163/73; PULSE 72; RESP 17; TEMP 36.4; O2SAT 95; BMI 25.4
[2023-05-07 10:50] LABS: Blood Urea Nitrogen 17 mg/dL (8-23); Calcium 8.7 mg/dL (8.5-10.5); Carbon Dioxide 25 mmol/L (22-29); Chloride 101 mmol/L (98-107); Glucose 301 mg/dL (65-115); Osmolality Calculated 293 mOsm/kg (285-295); Sodium 135 mmol/L (136-145)
[2023-05-07 11:11] VITALS: BP 149/64; RESP 18
--- NOTE | 2023-05-07 13:15 | W.ED.RECABL ---
HPI - Recheck/Abnormal Lab/Rx General: Chief Complaint: Recheck/Abnormal Lab/Rx Stated Complaint: BP Time Seen by Provider: 05/07/23 10:08 Source: patient Mode of arrival: ambulatory History of Present Illness: 83-year-old male presents emergency room complaining of elevated blood pressure recently they added losartan. This morning blood pressures in the 180 systolic range she states he has been taking all of his medications no difficulty speech swallowing or vision no difficulty walking no chest pain blood pressure improved on arrival here Symptoms since prior visit: no new symptoms Associated symptoms: none Review of Systems Const: Denies: fever(s) or chills Card: Denies: chest pain Resp: Denies: dyspnea GI: Denies: abdominal pain : Denies: dysuria, urinary frequency or urinary urgency Musc: Denies: neck pain or back pain Skin/Breast: Denies: rash PFSH ED PFSH: Medical History Abdominal mass Adrenal mass Anticoagulant long-term use ASHD (arteriosclerotic heart disease) Atrial fibrillation Chest pain Chills CKD (chronic kidney disease) Diabetes Dyslipidemia Fatigue History of nonmelanoma skin cancer HTN (hypertension) MYLA on CPAP Paroxysmal atrial fibrillation with RVR Pneumonia Shortness of breath Surgical History S/P CABG (coronary artery bypass graft) S/P knee replacement Social History Smoking and tobacco/nicotine status: former use of tobacco/nicotine Household members: spouse Marital status: service: No Current occupational status: retired Physical Exam Const: COMMON NORMALS: no acute distress GENERAL APPEARANCE: cooperative and comfortable ORIENTATION/CONSCIOUSNESS: Yes awake, Yes oriented to person, Yes oriented to place and Yes oriented to time HENMT: COMMON NORMALS: normocephalic, atraumatic and hearing grossly normal bilaterally HEAD & SCALP: normocephalic and atraumatic Resp: COMMON NORMALS: normal respiratory effort, No retractions, No use of accessory muscles and clear to auscultation bilaterally AUSCULTATION: clear to auscultation bilaterally Cardio: COMMON NORMALS: regular rate, regular rhythm and No murmurs present (Cardio) RATE: regular rate RHYTHM: regular rhythm GI: COMMON NORMALS: Soft to palpation and No hepatosplenomegaly present AUSCULTATION: Yes normoactive bowel sounds PALPATION: Yes Soft to palpation, No Tenderness to palpation present (GI), No Guarding due to palpation present (GI) and Yes No hepatosplenomegaly present Extremity: COMMON NORMALS: normal to inspection, capillary refill normal, no clubbing, cyanosis or edema, no calf tenderness and no pedal edema Neuro: SENSORIUM/ORIENTATION: Yes oriented to person, Yes oriented to place and Yes oriented to time Skin: COMMON NORMALS: no rashes or lesions noted GENERAL SKIN EXAM: no rashes or lesions noted Course Vital Signs: Vital signs: Vital Signs Temperature 97.5 F L 05/07/23 10:01 Pulse Rate 72 05/07/23 10:01 Respiratory Rate 18 05/07/23 11:11 Blood Pressure 149/64 05/07/23 11:11 Pulse Oximetry 95 05/07/23 10:01 Oxygen Delivery Me thod Room Air 05/07/23 10:01 MDM - Recheck/Abnormal Lab/Rx Medical Decision Making Blood pressure improved at this time recommended continued observation BMP unremarkable follow-up with primary care doctor within the next week continue current medications Medical Records I reviewed the patient's medical records. Lab Data I reviewed the patient's lab results. 05/07/23 10:25 Laboratory Results Sodium 135 mmol/L (136-145) L 05/07/23 10:25 Potassium 4.0 mmol/L (3.5-5.1) 05/07/23 10:25 Chloride 101 mmol/L (98-107) 05/07/23 10:25 Carbon Dioxide 25 mmol/L (22-29) 05/07/23 10:25 Anion Gap 13.0 (5-19) 05/07/23 10:25 BUN 17 mg/dL (8-23) 05/07/23 10:25 Creatinine 1.3 mg/dL (0.7-1.2) H 05/07/23 10:25 GFR Calculation Not Reportable 05/07/23 10:25 Glucose 301 mg/dL (65-115) H 05/07/23 10:25 Calculated Osmolality 293 mOsm/kg (285-295) 05/07/23 10:25 Calcium 8.7 mg/dL (8.5-10.5) 05/07/23 10:25 No radiology studies performed this visit Discharge Plan Discharge Patient Disposition: Home Clinical Impression: HTN (hypertension) Condition: Stable Prescriptions: No Action cholecalciferol (vitamin D3) 10 mcg (400 unit) capsule 10 mcg PO DAILY ascorbate calcium (vitamin C) 500 mg tablet 500 mg PO BID cetirizine 10 mg tablet 10 mg PO DAILY PRN (Reason: Allergy Symptoms) calcium carbonate [Calcium 600] 600 mg calcium (1,500 mg) tablet 600 mg PO DAILY vitamin E (dl, acetate) 180 mg (400 unit) capsule 180 mg PO DAILY nitroglycerin 0.4 mg tablet, sublingual 0.4 mg sublingual Q5M PRN (Reason: Chest Pain) Rx Instructions: do not exceed 3 doses per episode benzonatate 100 mg capsule 100 mg PO TID PRN (Reason: cough) Qty: 45 0RF verapamil 80 mg tablet 80 mg PO BID Qty: 60 3RF fluticasone propionate 50 mcg/actuation spray,suspension 2 spray intranasal DAILY PRN Rx Instructions: administer into each nostril furosemide 20 mg tablet 20 mg PO DAILY PRN (Reason: edema) Rx Instructions: Take one tab PO daily for two weeks then as needed for swelling or shortness of breath. potassium chloride [Klor-Con 10] 10 mEq tablet extended release 10 meq PO DAILY PRN (Reason: On days that you take Furosemide) Qty: 30 6RF (DME) pen needle, diabetic [BD Ultra-Fine Karley Pen Needle] 32 gauge x 5/32 needle See Rx Instructions .Route Qty: 50 6RF Rx Instructions: As directed Levemir FlexPen 100 unit/mL (3 mL) insulin pen 30 unit SUBCUT DAILY Qty: 15 6RF Rx Instructions: Inject 30 units SQ daily. Increase by 5 units for every 3 days in a row that fasting glucose above 150 (DME) cpap machine and supplies See Rx Instructions .Route .MEDSUPPLY Qty: 1 0RF Rx Instructions: As directed - Settings 5-10 cm H2O - Auto-titrating Januvia 100 mg tablet 100 mg PO DAILY Qty: 90 2RF ferrous sulfate 325 mg (65 mg iron) tablet 325 mg PO BID Qty: 60 6RF Eliquis 2.5 mg tablet 2.5 mg PO BID 90 Days Qty: 180 3RF montelukast 10 mg tablet See Rx Instructions .ROUTE .COMPLEX Qty: 90 3RF Dose Instruction: TAKE ONE TABLET BY MOUTH DAILY Rx Instructions: TAKE ONE TABLET BY MOUTH DAILY (DME) Diabetic shoes See Rx Instructions .Route .MEDSUPPLY Qty: 1 0RF Rx Instructions: As directed tramadol 50 mg tablet 50 mg PO TID PRN (Reason: pain) Qty: 60 0RF cyanocobalamin (vitamin B-12) 1,000 mcg tablet See Rx Instructions .ROUTE .COMPLEX Qty: 90 3RF Dose Instruction: TAKE ONE TABLET BY MOUTH ONCE DAILY Rx Instructions: TAKE ONE TABLET BY MOUTH ONCE DAILY glimepiride 4 mg tablet 4 mg PO DAILY Qty: 90 3RF losartan 50 mg tablet 50 mg PO DAILY Qty: 30 6RF pantoprazole 40 mg tablet,delayed release (DR/EC) See Rx Instructions .ROUTE .COMPLEX Qty: 90 3RF Dose Instruction: TAKE ONE TABLET BY MOUTH DAILY Rx Instructions: TAKE ONE TABLET BY MOUTH DAILY PreserVision AREDS-2 250-90-40-1 mg Capsule 1 tab PO BID metoprolol succinate 100 mg tablet extended release 24 hr 100 mg PO BID tamsulosin 0.4 mg capsule 0.4 mg PO QPM pravastatin 20 mg tablet 20 mg PO QPM Discharge Orders: Discharge ED (Routine); Ordered 05/07/23 Ordered By: Chavez Levy Referrals: Shar Che MD [Primary Care Provider] - Patient Instructions: Opioid Safety, Pain Management Activity Restrictions/Additional Instructions: Thank you for choosing [facility] for your healthcare needs today. Please realize this is an emergency room and that we are providing you with a medical screening exam and this may not be complete and all inclusive of all the testing and or work up that you may need to determine your ailment or severity of your illness. It is very important that you follow up as instructed or that you return to the Emergency Department should you have concerns or if your condition changes or worsens in any way. Monitor your blood pressure at home and follow-up with your primary care doctor within the next week to reevaluate blood pressure and blood pressure control. Time discharge your blood pressure is in normal range your BMP shows elevated glucose with the remainder of the electrolytes kidney function are at your normal baseline levels Coding Level of Care Code ED Pl Sql Developer for Jamel Valle
== END 2023-05-07 11:13 | disposition home or self-care (01) ==
PROVIDERS: Emergency Provider Family Medicine; PCP Family Medicine
DX: I12.9 Hypertensive chronic kidney disease with stage 1 through stage 4 chronic kidney disease, or unspecified chronic kidney disease (principal); E11.22 Type 2 diabetes mellitus with diabetic chronic kidney disease; N18.9 Chronic kidney disease, unspecified; Z79.01 Long term (current) use of anticoagulants; Z79.4 Long term (current) use of insulin; Z79.84 Long term (current) use of oral hypoglycemic drugs; Z87.891 Personal history of nicotine dependence; E78.5 Hyperlipidemia, unspecified; Z95.1 Presence of aortocoronary bypass graft
CPT/HCPCS: 36415; 80048; 99283

== ENCOUNTER 2023-05-15 06:00 | Outpatient (RCR) | payer MEDICARE, OTHER, SELFPAY | END 2023-06-14 23:59 | disposition home or self-care (01) | LOC: APT 06:00 | PROVIDERS: PCP Family Medicine; Visit Provider Nurse Practitioner | DX: Z47.1 Aftercare following joint replacement surgery (principal); Z96.653 Presence of artificial knee joint, bilateral | CPT/HCPCS: 97110 ==

== ENCOUNTER → 2023-06-22 08:11 | Outpatient (BNVA) | payer MEDICARE, OTHER, SELFPAY | PROVIDERS: PCP Family Medicine; Referring Provider Family Medicine; Visit Provider Internal Medicine Pulmonary Disease | DX: J43.2 Centrilobular emphysema (principal); J18.9 Pneumonia, unspecified organism; G47.33 Obstructive sleep apnea (adult) (pediatric); Z99.89 Dependence on other enabling machines and devices; Z87.891 Personal history of nicotine dependence | CPT/HCPCS: 99204 ==

== ENCOUNTER → 2023-06-22 10:36 | Outpatient (BNVA) | payer MEDICARE, OTHER, SELFPAY | PROVIDERS: PCP Family Medicine; Visit Provider Family Medicine | DX: R06.02 Shortness of breath (principal); Z51.81 Encounter for therapeutic drug level monitoring; E11.9 Type 2 diabetes mellitus without complications; I10 Essential (primary) hypertension | CPT/HCPCS: 80053; 83036; 85025 ==

== ENCOUNTER 2023-07-08 09:48 | Outpatient (CLI) | payer MEDICARE, OTHER, SELFPAY ==
[2023-07-08 10:47] VITALS: PULSE 63; RESP 18; O2SAT 97
[2023-07-08 10:53] VITALS: PULSE 65
[2023-07-08] MEDS: albuterol 2.5 mg/3 mL Neb INHALATION (11:13)
== END 2023-07-08 09:49 | disposition home or self-care (01) ==
PROVIDERS: PCP Family Medicine; Visit Provider Internal Medicine Pulmonary Disease
DX: J18.9 Pneumonia, unspecified organism (principal); Z87.891 Personal history of nicotine dependence; R94.2 Abnormal results of pulmonary function studies
CPT/HCPCS: 80053; 83036; 85025; 94060; 94618; 94726; 94729; J7613

== ENCOUNTER 2023-07-08 09:48 | Outpatient (CLI) | payer MEDICARE, OTHER, SELFPAY ==
--- NOTE | 2023-07-08 10:30 | CT_ITS ---
WS: [id number] CT CHEST TECHNIQUE: Noncontrast CT of the chest with coronal and sagittal reformatted images. CLINICAL INFORMATION: for resolution of pneumonia COMPARISON: Chest CT 11/25/2018. PET/CT 01/31/2023 DLP: 383.[address] scans at [facility] use at least one of these dose optimization techniques: automated e xposure control; mA and/or kV adjustment per patient size (includes targeted exams where dose is matc hed to clinical indication); or iterative reconstruction. FINDINGS: Moderate chronic centrilobular emphysematous changes. Interstitial thickening with subsegmental atele ctasis in the lung bases. Mild bronchiectasis in the lung bases. Calcified pleural plaques along the RIGHT diaphragm. Tiny calcified granulomas. A few tiny subpleural nodules in the lung bases. Mild aortic calcification. Coronary calcification. Sternotomy with CABG. Slightly ectatic ascending t horacic aorta measuring 3.9 cm. Enlarged LEFT peribronchial lymph node measuring 1.6 cm unchanged. No new or progressed lymphadenopathy. No axillary lymphadenopathy. Small esophageal hiatal hernia. Fatty atrophy of the pancreas. RIGHT adrenal gland is normal. 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 Hemangioma L1 vertebral body. IMPRESSION: 1. Moderate chronic emphysematous changes with interstitial thickening and subsegmental atelectasis in the lung bases. LEFT lower lobe infiltrate has improved compared to the prior PET/CT. Mild bronchi ectasis in the lung bases. 2. Stable 1.6 cm LEFT peribronchial lymph node. No new or progressed mediastinal or hilar lymphadeno nathaniel. 3. Ectatic ascending thoracic aorta measuring 3.9 cm. 4. Stable LEFT adrenal myolipoma.
== END 2023-07-08 09:49 | disposition home or self-care (01) ==
LOC: RAD 09:49
PROVIDERS: PCP Family Medicine; Visit Provider Internal Medicine Pulmonary Disease
DX: J18.9 Pneumonia, unspecified organism (principal); J47.0 Bronchiectasis with acute lower respiratory infection; J43.9 Emphysema, unspecified; J98.11 Atelectasis; I77.810 Thoracic aortic ectasia; D17.5 Benign lipomatous neoplasm of intra-abdominal organs; Z87.891 Personal history of nicotine dependence; R94.2 Abnormal results of pulmonary function studies
CPT/HCPCS: 71250; 94060; 94618; 94726; 94729; J7613

== ENCOUNTER → 2023-08-04 12:16 | Outpatient (BNVA) | payer MEDICARE, OTHER, SELFPAY | PROVIDERS: PCP Family Medicine; Visit Provider Internal Medicine Pulmonary Disease | DX: J43.2 Centrilobular emphysema (principal); G47.33 Obstructive sleep apnea (adult) (pediatric); Z99.89 Dependence on other enabling machines and devices; Z87.891 Personal history of nicotine dependence | CPT/HCPCS: 99214 ==

== ENCOUNTER → 2023-10-06 12:51 | Outpatient (BNVA) | payer MEDICARE, OTHER, SELFPAY | PROVIDERS: PCP Family Medicine; Visit Provider Family Medicine | DX: Z51.81 Encounter for therapeutic drug level monitoring (principal); E11.9 Type 2 diabetes mellitus without complications; E87.6 Hypokalemia; J43.2 Centrilobular emphysema; D64.9 Anemia, unspecified; I10 Essential (primary) hypertension; E78.5 Hyperlipidemia, unspecified | CPT/HCPCS: 80053; 83036; 83735; 85025 ==

== ENCOUNTER → 2023-10-21 13:30 | Outpatient (BNVA) | payer MEDICARE, OTHER, SELFPAY | PROVIDERS: PCP Family Medicine; Visit Provider Family Medicine | DX: R35.0 Frequency of micturition (principal); R10.9 Unspecified abdominal pain; R74.8 Abnormal levels of other serum enzymes; Z51.81 Encounter for therapeutic drug level monitoring; E11.9 Type 2 diabetes mellitus without complications; R05.9 Cough, unspecified; J47.9 Bronchiectasis, uncomplicated | CPT/HCPCS: 80053; 83036; 84153; 85025 ==

== ENCOUNTER 2023-10-29 06:46 | Outpatient (CLI) | payer MEDICARE, OTHER, SELFPAY ==
--- NOTE | 2023-10-29 07:30 | US_ITS ---
WS: [id number] RIGHT UPPER QUADRANT ULTRASOUND HISTORY: Elevated Alk phos - RUQ US COMPARISON: 01/05/2023 Liver: 17.8 cm in length. Enlarged liver with changes of mild hepatic steatosis. Portal Vein: Normal hepatopetal flow with monophasic waveform. Gallbladder: Pancreas is echogenic. No mass. CBD: 0.5 cm Pancreas: Echogenic pancreas. No mass. Right kidney: 8.6 cm in length. Low normal size kidney. No obstruction or mass. Aorta and IVC: Unremarkable abdominal aorta and IVC. No ascites. US/US abdomen limited [id number] IMPRESSION: 1. Normal gallbladder. 2. Mild hepatomegaly and hepatic steatosis. 3. Echogenic pancreas. May be related to prior episodes of pancreatitis.
== END 2023-10-29 06:47 | disposition home or self-care (01) ==
LOC: RAD 06:46
PROVIDERS: PCP Family Medicine; Visit Provider Family Medicine
DX: K76.0 Fatty (change of) liver, not elsewhere classified (principal); R16.0 Hepatomegaly, not elsewhere classified; R10.9 Unspecified abdominal pain
CPT/HCPCS: 76705

== ENCOUNTER → 2023-11-26 13:02 | Outpatient (BNVA) | payer MEDICARE, OTHER, SELFPAY | PROVIDERS: PCP Family Medicine; Visit Provider Dermatology | DX: D22.39 Melanocytic nevi of other parts of face (principal) | CPT/HCPCS: 11102; 17000; 99213 ==

== ENCOUNTER → 2024-01-22 10:11 | Outpatient (BNVA) | payer MEDICARE, OTHER, SELFPAY | PROVIDERS: PCP Family Medicine; Visit Provider Family Medicine | DX: Z51.81 Encounter for therapeutic drug level monitoring (principal); E11.9 Type 2 diabetes mellitus without complications | CPT/HCPCS: 80053; 83036; 85025 ==

== ENCOUNTER → 2024-01-25 12:21 | Outpatient (BNVA) | payer MEDICARE, OTHER, SELFPAY | PROVIDERS: PCP Family Medicine; Visit Provider Internal Medicine Critical Care Medicine | DX: R06.09 Other forms of dyspnea (principal); J43.2 Centrilobular emphysema; J98.4 Other disorders of lung; G47.33 Obstructive sleep apnea (adult) (pediatric); E66.3 Overweight; Z68.27 Body mass index [BMI] 27.0-27.9, adult; J44.9 Chronic obstructive pulmonary disease, unspecified | CPT/HCPCS: 99214 ==

== ENCOUNTER → 2024-02-08 13:58 | Outpatient (BNVA) | payer MEDICARE, OTHER, SELFPAY | PROVIDERS: PCP Family Medicine; Visit Provider Internal Medicine | DX: I25.10 Atherosclerotic heart disease of native coronary artery without angina pectoris (principal); I48.91 Unspecified atrial fibrillation; E78.5 Hyperlipidemia, unspecified; Z95.1 Presence of aortocoronary bypass graft; Z79.01 Long term (current) use of anticoagulants; I12.9 Hypertensive chronic kidney disease with stage 1 through stage 4 chronic kidney disease, or unspecified chronic kidney disease; N18.9 Chronic kidney disease, unspecified; G47.33 Obstructive sleep apnea (adult) (pediatric); Z99.89 Dependence on other enabling machines and devices; E11.22 Type 2 diabetes mellitus with diabetic chronic kidney disease; Z87.891 Personal history of nicotine dependence | CPT/HCPCS: 99214 ==

== ENCOUNTER 2024-02-12 13:54 | Outpatient (CLI) | payer MEDICARE, OTHER, SELFPAY ==
--- NOTE | 2024-02-12 13:58 | XR_ITS ---
WS: [id number] Exam: XR chest 2V* [id number] Date/Time of Exam: 02/12/2024 2:02 PM Reason For Exam: left rib pain after a fall Lungs are hyperinflated and clear. Chronic bibasal plaque atelectasis. Heart size is normal. The medi astinum is normal in contour. Signs of previous CABG surgery. Bony structures are intact. Right-sided calcified diaphragmatic plaques. XR/XR chest 2V* [id number] IMPRESSION: 1. No acute rib fracture. 2. Pulmonary hyperinflation. Bibasal plaque atelectasis. 3. Calcified RIGHT diaphragmatic plaques that are nonspecific but could be seen with asbestos related lung disease.
== END 2024-02-12 13:55 | disposition home or self-care (01) ==
LOC: RAD 13:57
PROVIDERS: PCP Family Medicine; Visit Provider Clinical Nurse Specialist Adult Health
DX: R07.81 Pleurodynia (principal); S20.212A Contusion of left front wall of thorax, initial encounter
CPT/HCPCS: 71046

== ENCOUNTER 2024-04-27 11:42 | Outpatient (CLI) | payer MEDICARE, OTHER, SELFPAY ==
[2024-04-27 12:43] LABS: Basophils % 0.4 %; Eosinophils # 0.2 10^3/uL (0.0-0.8); Hematocrit 42.6 % (37-53); Lymphocytes # 1.5 10^3/uL (0.8-4.8); Mean Corpuscular HGB Conc 33.3 g/dL (30-55); Mean Corpuscular Hemoglobin 28.9 pg (27-33); Mean Corpuscular Volume 86.8 fl (82-101); Monocytes % 9.8 %; Neutrophils # 7.13 10^3/uL (1.8-7.7); Neutrophils % 72.6 %; Nucleated Red Blood Cells % 0 %; Platelet Count 191 10^3/cmm (157-399); Red Blood Count 4.91 10^6/uL (3.85-5.65); Red Cell Distribution Width 13.2 % (12.1-15.1); White Blood Count 9.82 10^3/uL (3.29-11.43)
[2024-04-27 13:01] LABS: Estmated Average Glucose 163; Hemoglobin A1C 7.3 % (4.0-6.0)
[2024-04-27 13:31] LABS: Alanine Aminotransferase 13 U/L (0-41); Albumin Level 4.2 g/dL (3.5-5.2); Alkaline Phosphatase 140 U/L (40-130); Blood Urea Nitrogen 17 mg/dL (8-23); Calcium 8.7 mg/dL (8.5-10.5); Carbon Dioxide 22 mmol/L (22-29); Chloride 102 mmol/L (98-107); Chol HDL Ratio 4.38 mg/dL (1.0-5.00); Cholesterol 149 mg/dL (0-200); Globulin 1.6 g/dL (1.3-4.6); Glucose 204 mg/dL (65-115); HDL Cholesterol 34 mg/dL (60-100); Iron 70 ug/dL (59-158); Osmolality Calculated 291 mOsm/kg (285-295); Sodium 137 mmol/L (136-145); Total Bilirubin 0.2 mg/dL (0.15-1.2); Total Protein 5.8 g/dL (6.6-8.7); Triglycerides 426 mg/dL (0-150); Vitamin B12 1715 pg/mL (232-1245)
[2024-04-27 13:47] LABS: Anion Gap 17.5 (5-19); Percent Saturation 24.6 % (20-50); Potassium 4.5 mmol/L (3.5-5.1); Total Iron Binding Capacity 284 mcg/dl; Unsaturated Iron Binding 214 ug/dL (112-347)
[2024-04-27 14:04] LABS: LDL Cholesterol Direct 90 mg/dL (0-100)
[2024-04-27 14:21] LABS: Aspartate Amino Transferase 19 U/L (0-40)
== END 2024-04-27 11:43 | disposition home or self-care (01) ==
LOC: LAB 11:44
PROVIDERS: PCP Family Medicine; Visit Provider Family Medicine
DX: Z79.01 Long term (current) use of anticoagulants (principal); E11.9 Type 2 diabetes mellitus without complications; R35.0 Frequency of micturition; Z51.81 Encounter for therapeutic drug level monitoring; M25.50 Pain in unspecified joint; G89.29 Other chronic pain; Z13.220 Encounter for screening for lipoid disorders; D64.9 Anemia, unspecified; E53.8 Deficiency of other specified B group vitamins
CPT/HCPCS: 36415; 80053; 80061; 82607; 83036; 83540; 83550; 83721; 84153; 85025; 86141; 86431

== ENCOUNTER → 2024-06-14 09:48 | Outpatient (BNVA) | payer MEDICARE, OTHER, SELFPAY | PROVIDERS: PCP Family Medicine; Visit Provider Family Medicine | DX: E11.9 Type 2 diabetes mellitus without complications (principal); Z51.81 Encounter for therapeutic drug level monitoring; Z98.49 Cataract extraction status, unspecified eye; R76.8 Other specified abnormal immunological findings in serum; M25.50 Pain in unspecified joint; G89.29 Other chronic pain | CPT/HCPCS: 80048; 83036; 83540; 83735; 85651; 86038; 86200 ==

== ENCOUNTER → 2024-08-17 08:41 | Outpatient (BNVA) | payer MEDICARE, OTHER, SELFPAY | PROVIDERS: PCP Family Medicine; Visit Provider Dermatology | DX: D48.5 Neoplasm of uncertain behavior of skin (principal); D18.01 Hemangioma of skin and subcutaneous tissue; Z08 Encounter for follow-up examination after completed treatment for malignant neoplasm; Z85.828 Personal history of other malignant neoplasm of skin; L57.0 Actinic keratosis | CPT/HCPCS: 17000; 99213 ==

== ENCOUNTER → 2024-08-18 14:53 | Outpatient (BNVA) | payer MEDICARE, OTHER, SELFPAY | PROVIDERS: PCP Family Medicine; Visit Provider Internal Medicine | DX: I25.10 Atherosclerotic heart disease of native coronary artery without angina pectoris (principal); I48.91 Unspecified atrial fibrillation; E78.5 Hyperlipidemia, unspecified; Z95.1 Presence of aortocoronary bypass graft; I12.9 Hypertensive chronic kidney disease with stage 1 through stage 4 chronic kidney disease, or unspecified chronic kidney disease; Z79.01 Long term (current) use of anticoagulants; N18.9 Chronic kidney disease, unspecified; G47.33 Obstructive sleep apnea (adult) (pediatric); Z99.89 Dependence on other enabling machines and devices; E11.22 Type 2 diabetes mellitus with diabetic chronic kidney disease; Z79.4 Long term (current) use of insulin | CPT/HCPCS: 99214 ==

== ENCOUNTER → 2024-08-30 08:42 | Outpatient (BNVA) | payer MEDICARE, OTHER, SELFPAY | PROVIDERS: PCP Family Medicine; Referring Provider Family Medicine; Visit Provider Internal Medicine Rheumatology | DX: M05.79 Rheumatoid arthritis with rheumatoid factor of multiple sites without organ or systems involvement (principal); Z79.899 Other long term (current) drug therapy; Z71.85 Encounter for immunization safety counseling; R76.8 Other specified abnormal immunological findings in serum | CPT/HCPCS: 99204 ==

== ENCOUNTER → 2024-11-28 14:31 | Outpatient (BNVA) | payer MEDICARE, OTHER, SELFPAY | PROVIDERS: PCP Family Medicine; Visit Provider Family Medicine | DX: Z51.81 Encounter for therapeutic drug level monitoring (principal); E11.9 Type 2 diabetes mellitus without complications | CPT/HCPCS: 80053; 83036; 85025 ==

== ENCOUNTER → 2024-12-20 09:43 | Outpatient (BNVA) | payer MEDICARE, OTHER, SELFPAY | PROVIDERS: PCP Family Medicine; Visit Provider Internal Medicine Rheumatology | DX: M05.79 Rheumatoid arthritis with rheumatoid factor of multiple sites without organ or systems involvement (principal); Z79.899 Other long term (current) drug therapy; Z71.85 Encounter for immunization safety counseling; R76.8 Other specified abnormal immunological findings in serum; M54.9 Dorsalgia, unspecified | CPT/HCPCS: 72072; 72100; 99214 ==

== ENCOUNTER → 2024-12-28 14:24 | Outpatient (BNVA) | payer MEDICARE, OTHER, SELFPAY | PROVIDERS: PCP Family Medicine; Visit Provider Nurse Practitioner Family | DX: M54.50 Low back pain, unspecified (principal); G89.29 Other chronic pain; M54.16 Radiculopathy, lumbar region; F17.200 Nicotine dependence, unspecified, uncomplicated | CPT/HCPCS: 99214 ==

== ENCOUNTER 2025-01-02 10:06 | Outpatient (CLI) | payer MEDICARE, OTHER, SELFPAY ==
--- NOTE | 2025-01-02 10:00 | CT_ITS ---
WS: [id number] CT LUMBAR SPINE, noncontrast. HISTORY: M54.16 - Radiculopathy, lumbar region TECHNIQUE: Contiguous 2.0 mm axial imaging are performed. Sagittal and coronal reformats are submitted and reviewed. All CT scans at [facility] use at least one of these dose optimization techniques: automated exposure control; mA and/or kV adjustment per patient size (includes targeted exams where dose is matched to clinical indication); or iterative reconstruction. IV contrast: None DLP: 646.00 mGy.cm COMPARISON: Radiograph 12/20/2024 Mild curvature of the lumbar spine. Hemangioma L1. Disc spaces are narrowed and desiccated, most significant at L4-5. No fracture. Hypertrophic endplate osteophytes and bilateral multilevel facet arthritis. L1-2: Diffuse disc bulging with osteophytic ridging. Shallow LEFT foraminal disc protrusion. Mild subarticular recess and foraminal stenosis. Slightly greater LEFT foraminal stenosis. L2-3: Diffuse annular disc bulging and osteophytic ridging with facet arthritis. Ligamentum flavum and facet arthritis. Mild foraminal stenosis. L3-4: Diffuse disc bulging. Broad-based LEFT foraminal disc protrusion. Mild effacement of ventral CSF. Mild ligamentum flavum and facet arthritis. Moderate LEFT foraminal stenosis. L4-5: Diffuse osteophytic ridging with mild disc bulging and facet arthritis. Ligamentum flavum hypertrophy and facet arthritis. Mild central, bilateral subarticular recess and foraminal stenosis. L5-S1: Diffuse disc bulging with a broad-based central disc protrusion. No central stenosis. Mild bilateral foraminal stenosis. Advanced atherosclerotic disease within the aorta. Common iliac artery dense calcification. Reidentified is a fat-containing LEFT adrenal mass measuring 4.7 x 3.3 cm. Additional LEFT retroperitoneal irregular mass with a central calcification measures 2.8 x 2.7 cm. Both the adrenal mass and the retroperitoneal mass have been present on prior studies without increase in size. Negative on PET/CT of 01/31/2023. CT/CT lumbar spine wo con* [id number] IMPRESSION: 1. Moderate to advanced degenerative disc disease and spondylosis. 2. No lumbar spine fracture. 3. L1-2: Shallow LEFT foraminal disc protrusion. Mild subarticular recess and bilateral foraminal stenosis. 4. Mild foraminal stenosis at L2-3. 5. Moderate LEFT foraminal stenosis at L3-4 with a broad-based LEFT foraminal disc protrusion. 6. L4-5: Mild central, bilateral subarticular recess and foraminal stenosis. 7. L5-S1: Broad-based central disc protrusion. Mild foraminal stenosis. 8. PET/CT negative LEFT adrenal myolipoma and PET/CT negative retroperitoneal LEFT mass which may be a cluster of treated lymph nodes.
== END 2025-01-02 10:07 | disposition home or self-care (01) ==
LOC: RAD 10:10
PROVIDERS: PCP Family Medicine; Visit Provider Nurse Practitioner Family
DX: M54.16 Radiculopathy, lumbar region (principal); M47.896 Other spondylosis, lumbar region; M99.63 Osseous and subluxation stenosis of intervertebral foramina of lumbar region; M51.26 Other intervertebral disc displacement, lumbar region; M48.061 Spinal stenosis, lumbar region without neurogenic claudication; M48.07 Spinal stenosis, lumbosacral region
CPT/HCPCS: 72131

== ENCOUNTER → 2025-01-30 11:51 | Outpatient (BNVA) | payer MEDICARE, OTHER, SELFPAY | PROVIDERS: PCP Family Medicine; Visit Provider Family Medicine | DX: Z51.81 Encounter for therapeutic drug level monitoring (principal) | CPT/HCPCS: 80048 ==

== ENCOUNTER → 2025-01-31 14:20 | Outpatient (BNVA) | payer MEDICARE, OTHER, SELFPAY | PROVIDERS: PCP Family Medicine; Visit Provider Nurse Practitioner Family | DX: M79.18 Myalgia, other site (principal); M54.50 Low back pain, unspecified; G89.29 Other chronic pain; F17.200 Nicotine dependence, unspecified, uncomplicated | CPT/HCPCS: 20553; 99214; J1010; J3490 ==

== ENCOUNTER → 2025-02-15 09:41 | Outpatient (BNVA) | payer MEDICARE, OTHER, SELFPAY | PROVIDERS: PCP Family Medicine; Visit Provider Nurse Practitioner Family | DX: M54.50 Low back pain, unspecified (principal); G89.29 Other chronic pain; Z87.891 Personal history of nicotine dependence | CPT/HCPCS: 99214 ==

== ENCOUNTER → 2025-03-07 16:34 | Outpatient (BNVA) | payer MEDICARE, OTHER, SELFPAY | PROVIDERS: PCP Family Medicine; Visit Provider Family Medicine | DX: J06.9 Acute upper respiratory infection, unspecified (principal) | CPT/HCPCS: 87400; 87426 ==

== ENCOUNTER → 2025-03-17 08:24 | Outpatient (BNVA) | payer MEDICARE, OTHER, SELFPAY | PROVIDERS: PCP Family Medicine; Visit Provider Family Medicine | DX: E53.8 Deficiency of other specified B group vitamins (principal); D64.9 Anemia, unspecified; E11.9 Type 2 diabetes mellitus without complications; Z51.81 Encounter for therapeutic drug level monitoring; E55.9 Vitamin D deficiency, unspecified | CPT/HCPCS: 80053; 82306; 82607; 83036; 83550; 85025 ==

== ENCOUNTER → 2025-05-10 10:51 | Outpatient (BNVA) | payer MEDICARE, OTHER, SELFPAY | PROVIDERS: PCP Family Medicine; Visit Provider Internal Medicine Rheumatology | DX: M05.79 Rheumatoid arthritis with rheumatoid factor of multiple sites without organ or systems involvement (principal); Z79.899 Other long term (current) drug therapy; Z71.85 Encounter for immunization safety counseling; R76.89 Other specified abnormal immunological findings in serum; E11.22 Type 2 diabetes mellitus with diabetic chronic kidney disease; N18.9 Chronic kidney disease, unspecified | CPT/HCPCS: 36415; 80076; 82306; 82565; 83036; 85025; 85651; 86140; 86480; 86704; 86803; 87340; 99214 ==

== ENCOUNTER → 2025-05-17 08:36 | Outpatient (BNVA) | payer MEDICARE, OTHER, SELFPAY | PROVIDERS: PCP Family Medicine; Visit Provider Nurse Practitioner Family | DX: M79.18 Myalgia, other site (principal); M54.50 Low back pain, unspecified; G89.29 Other chronic pain | CPT/HCPCS: 20553; 99214; J1010; J3490 ==

== ENCOUNTER → 2025-05-23 09:26 | Outpatient (BNVA) | payer MEDICARE, OTHER, SELFPAY | PROVIDERS: PCP Family Medicine; Visit Provider Internal Medicine | DX: I25.10 Atherosclerotic heart disease of native coronary artery without angina pectoris (principal); I12.9 Hypertensive chronic kidney disease with stage 1 through stage 4 chronic kidney disease, or unspecified chronic kidney disease; N18.9 Chronic kidney disease, unspecified; Z79.01 Long term (current) use of anticoagulants; Z87.891 Personal history of nicotine dependence; I48.0 Paroxysmal atrial fibrillation | CPT/HCPCS: 99214 ==

== ENCOUNTER 2025-05-30 09:18 | Outpatient (RCR) | payer MEDICARE, OTHER, SELFPAY | END 2025-06-14 23:59 | disposition home or self-care (01) | LOC: SPT 09:18 | PROVIDERS: PCP Family Medicine; Visit Provider Nurse Practitioner Family | DX: M54.50 Low back pain, unspecified (principal) | CPT/HCPCS: 97110; 97161 ==